=== PATIENT | female | born 1945 | race Caucasian/White ===

== ENCOUNTER → 2016-05-16 | Outpatient (CLI) | payer MEDICARE ==
[~2016-05-16] MED LIST: ACCUNEB 0.1.25 MG/1 NEB; ADVAIR 250/501 EA INH; ADVAIR 500/501 E1 INH; ALBUTEROL0.09 MG/A2 IH; ALBUTEROL0.09 MG/A2 INH; ALBUTEROL2.5 MG/0.5 INH; AMBIEN10 M1 PO; AMBIEN5 MG PO; ATIVAN0.5 MG PO; BENTYL10 MG PO; CARAFATE1 G1 PO; CARAFATE1 GM/10 ML PO; CARDIZEM CD240 MG PO; CEFUROXIME AXE250 MG PO; CELEBREX100 MG PO; CILOXAN 5 ML5 M1 OP; CILOXAN 5 ML5 M1 OT; CIPRO500 MG PO; CITRATE OF1.75 GM/30 PO; CLARITIN10 MG PO; COREG3.125 MG PO; DELTASONE10 MG PO; DELTASONE20 MG PO; ELAVIL25 MG PO; FEOSOL300 MG PO; FERGON240 MG PO; FERROUS SULFAT324 M1 PO; FIORICET 325 MG1 TAB PO; FLAGYL500 MG PO; FORTICAL200 IU/ACT; IBU800 M1 PO; KEFLEX500 MG PO; LEVAQUIN250 MG PO; LEVOTHYROXIN0.125 MG PO; LONITEN2.5 MG; LOPERAMIDE1 MG/5 ML; MIRALAX POWDER17 G1 PO; MOTRIN400 MG PO; MS CONTIN30 MG PO; MUCINEX600 MG PO; NEURONTIN100 MG PO; NEURONTIN300 MG PO; NEXIUM40 MG PO; NICODERM14 MG/24 H T; NORCO 325 MG-101 TAB PO; OXY IR5 MG PO; OXYCODONE5 M1 PO; OXYCONTIN10 MG PO; PERCOCET 325 MG1 TA2 PO; PERCOCET 325 MG1 TA7 PO; PREDNISONE10 MG PO; PREDNISONE5 MG PO; PREDNISONE50 MG PO; PROAIR HFA0.09 MG/AC INH; REMERON30 MG PO; REQUIP1 MG PO; REQUIP2 M2 PO; SEROQUEL XR150 MG PO; SEROQUEL XR200 MG PO; SEROQUEL XR400 MG PO; SEROQUEL200 MG PO; SEROQUEL300 MG PO; SEROQUEL400 MG PO; SOMA PO; SOMA350 MG PO; SPIRIVA -- 3018 MCG INH; SPIRIVA18 MCG PO; SYNTHROID,LEV150 MCG PO; SYNTHROID0.125 MG PO; Synthroid,Lev150 MCG PO; VALIUM10 MG PO; VENTOLIN H0.09 MG/AC INH; VESICARE5 MG PO; VIBRAMYCIN100 MG PO; VICODIN 5/500 505 MG PO; VICODIN ES 7501 TA1 PO; VICODIN ES 7501 TAB PO; VISTARIL25 M1 PO; VITAMIN B121000 MC2 SL; VITAMIN D5000 I3 PO; Ventolin 02.5 MG/3 M INH; XANAX XR0.5 MG PO; XANAX XR2 MG PO; XANAX0.25 MG PO; XANAX0.5 MG PO; XANAX2 MG PO; ZITHROMAX250 MG PO; ZOFRAN ODT4 MG SL; ZOLOFT100 MG PO; ZOLOFT50 MG PO
[2016-05-16 10:39] LABS: BILIRUBIN NEGATIVE (NEGATIVE); BLOOD 2+ (NEGATIVE); CLARITY SL CLOUDY (CLEAR); COLOR YELLOW (YELLOW); GLUCOSE NEGATIVE (NEGATIVE); KETONE NEGATIVE (NEGATIVE); LEUKO ESTERASE NEGATIVE (NEGATIVE); NITRITE NEGATIVE (NEGATIVE); PH 6.5 (5.0-9.0); PROTEIN 2+ (NEGATIVE); SPECIFIC GRAVITY 1.015 (1.005-1.030); UROBILINOGEN 0.2 E.U./dl (0.2-1.0)
[2016-05-16 11:17] LABS: BACTERIA 1+; RBC 16-20 rbc/hpf (0-2)
[2016-05-16 11:18] LABS: YEAST TRACE
== END | disposition home or self-care (01) ==
LOC: LAB 10:08
PROVIDERS: Urology
DX: N39.0 Urinary tract infection, site not specified (principal)

== ENCOUNTER 2016-05-19 16:39 | Inpatient (IN) | payer MEDICARE ==
[~2016-05-19] VITALS: Ht 154.9 cm; Wt 67.2 kg
--- NOTE | ~2016-05-19 | WRIGHTHP ---
[place], [place] PATIENT HISTORY AND PHYSICAL EXAM NAME: CAMILO AUGUSTE UNIT #: [id number] ROOM: 531 DOCTOR: CARON BUSBY MD BIRTHDATE: [birth year] DOS: 05/20/2016 HISTORY OF PRESENT ILLNESS: The patient is 70 years old, comes in with complaints of chest pain. Ambulance was called and was brought to the Emergency Room. She continues to complain of pain, but refuses to do any workup and also has not allowed the nursing staff to draw the enzymes. The patient does not have any fever, any chills, any cough, or sputum production. PAST MEDICAL HISTORY: Significant for, 1. Multiple hospitalizations for exacerbation of COPD. She uses oxygen sometimes. 2. Chronic pain syndrome. 3. Generalized anxiety disorder. 4. Hypothyroidism. 5. Negative cardiac evaluation in 08/2015. 6. History of lumbar laminectomy. 7. History of shoulder arthroplasty. MEDICATIONS: She is on are Percocet, vitamin D 5000, Nexium 40, levothyroxine 150. SOCIAL HISTORY: Heavy smoker, but the patient states that she is not smoking anymore, lives at home. PHYSICAL EXAMINATION: GENERAL: She is awake and alert and oriented, in no distress at all. VITAL SIGNS: Blood pressure is 134/63, pulse of 74, respirations 20, temperature 98.0. LUNGS: Clear. HEART: Regular. ABDOMEN: Soft, nontender. EXTREMITIES: Without any edema. Urine culture done on the shows no bacterial growth. LABORATORY DATA: White blood cell count is normal at 7.6. Comprehensive glucose 94, BUN 9, creatinine 0.65, sodium 135, potassium 3.4. Electrolytes were normal. Drug screen was positive for opiates. ASSESSMENT AND PLAN: 1. The patient who presents with precordial chest pain. The patient is an old smoker, also has risk factors, had a negative cardiac workup in 2016. I will ask Dr. Ruffin for an opinion, I think she is already scheduled for a stress test today. I have ordered enzymes to rule out myocardial infarction protocol, but unfortunately the patient refused to have them drawn, so, I wait until the stress test is performed and if it is negative, the patient should be able to go home. 2. Chronic pain syndrome already on Percocet, one dose of Toradol was given today. Patient to follow up with her primary care physician. 3. Chronic obstructive pulmonary disease without any evidence of exacerbation [place], [place] PATIENT HISTORY AND PHYSICAL EXAM NAME: CAMILO AUGUSTE UNIT #: [id number] ROOM: 531 DOCTOR: CARON BUSBY MD BIRTHDATE: [birth year] and the chest x-ray does not show any evidence of pneumonia. CARON BUSBY MD CM:HISPHYS:PATIENT HISTORY AND PHYSICAL EXAMINATION [id number] CARON BUSBY MD 06/21/16 1446 interface
[~2016-05-19 16:39] MED LIST changes: -REQUIP2 M2 PO; -ZOLOFT50 MG PO
[2016-05-19 16:45] VITALS: BP 113/74
[2016-05-19 17:04] VITALS: BP 108/65
[2016-05-19 17:07] LABS: BASO # 0.1 10*3/uL (0.0-0.1); BASO % 0.9 % (0.0-1.0); EOS # 0.1 10*3/uL (0.0-0.4); EOS % 1.8 % (1.0-4.0); HEMATOCRIT 38.2 % (37.0-47.0); LYMPH # 2.9 10*3/uL (1.3-4.4); LYMPH % 38.4 % (27.0-41.0); MEAN CELL VOLUME 84.9 fl (81.0-99.0); MEAN CORPUSCULAR HGB 26.7 pg (27.0-31.0); MEAN CORPUSCULAR HGB CONC 31.4 g/dl (33.0-37.0); MEAN PLATELET VOLUME 10.6 fl (9.6-12.3); MONO # 0.5 10*3/uL (0.1-1.0); MONO % 6.9 % (3.0-9.0); NEUT # 3.9 10*3/uL (2.3-7.9); NEUT % 51.7 % (47.0-73.0); PLATELET COUNT AUTOMATED 188 10*3/uL (130-400); RED CELL DISTRI WIDTH 15.8 % (0-14.5); WHITE BLOOD COUNT 7.6 10*3/uL (4.8-10.8)
[2016-05-19 17:26] LABS: ALKALINE PHOSPHATASE 87 U/L (45-117); BILIRUBIN, TOTAL 0.2 mg/dl (0.2-1.0); BUN 9 mg/dl (7-24); CARBON DIOXIDE 22 mmol/L (21-32); CHLORIDE 101 mmol/L (98-107); EST GLOM FILT AFRICAN AMERICAN > 60 ml/min; GLUCOSE 94 mg/dL (65-99); POTASSIUM 3.4 mmol/L (3.5-5.1); SGOT/AST 19 IU/L (3-35); SGPT/ALT 17 U/L (12-78); SODIUM 135 mmol/L (136-145); TOTAL PROTEIN 6.9 gm/dL (6.4-8.2)
[2016-05-19 17:27] LABS: TROPONIN I < 0.015 ng/ml (<0.5)
[2016-05-19 18:43] LABS: URINE AMPHETAMINES < 1000 (1000ng/ml); URINE BARBITURATES < 200 (200ng/ml); URINE COCAINE < 300 (300ng/ml)
[2016-05-19 18:47] LABS: BILIRUBIN NEGATIVE (NEGATIVE); BLOOD 2+ (NEGATIVE); CLARITY SL CLOUDY (CLEAR); COLOR YELLOW (YELLOW); GLUCOSE NEGATIVE (NEGATIVE); KETONE NEGATIVE (NEGATIVE); LEUKO ESTERASE 1+ (NEGATIVE); NITRITE NEGATIVE (NEGATIVE); PROTEIN 1+ (NEGATIVE); SPECIFIC GRAVITY <= 1.005 (1.005-1.030); UROBILINOGEN 0.2 E.U./dl (0.2-1.0)
[2016-05-19 18:56] LABS: URINE REFLEX COMMENT YES (NO); WBC 16-20 wbc/hpf (0-5)
[2016-05-19 19:06] VITALS: BP 111/69
[2016-05-20] VITALS: BP 134/63
[2016-05-20 08:00] VITALS: BP 136/58
[2016-07-12] MEDS ORDERED: REQUIP2 M2 PO (11:35)
[2016-07-12] MEDS ORDERED: ZOLOFT50 MG PO (11:36)
== END 2016-05-20 15:03 | disposition left against medical advice (07) | DRG 206 ==
LOC: ED 16:39 → EDHOLD 17:39 → 5E 17:39
PROVIDERS: Nurse Practitioner Family
DX: M94.0 Chondrocostal junction syndrome [Tietze] (principal); J44.9 Chronic obstructive pulmonary disease, unspecified; G89.4 Chronic pain syndrome; F41.1 Generalized anxiety disorder; Z96.619 Presence of unspecified artificial shoulder joint; Z98.890 Other specified postprocedural states; Z87.891 Personal history of nicotine dependence

== ENCOUNTER → 2016-07-12 | Outpatient (CLI) | payer MEDICARE ==
[~2016-07-12] MED LIST changes: +REQUIP2 M2 PO; +ZOLOFT50 MG PO
[2016-07-12 12:05] LABS: BILIRUBIN NEGATIVE (NEGATIVE); BLOOD 2+ (NEGATIVE); CLARITY CLOUDY (CLEAR); COLOR YELLOW (YELLOW); GLUCOSE NEGATIVE (NEGATIVE); KETONE NEGATIVE (NEGATIVE); LEUKO ESTERASE 2+ (NEGATIVE); NITRITE NEGATIVE (NEGATIVE); PH 5.5 (5.0-9.0); PROTEIN TRACE (NEGATIVE); UROBILINOGEN 0.2 E.U./dl (0.2-1.0)
[2016-07-12 12:28] LABS: EPITHELIAL CELLS 15-20; WBC 31-40 wbc/hpf (0-5)
[2016-07-12 12:31] LABS: BACTERIA 1+; YEAST 1+
[2016-07-12 12:35] LABS: BASO # 0.1 10*3/uL (0.0-0.1); BASO % 0.6 % (0.0-1.0); EOS # 0.2 10*3/uL (0.0-0.4); EOS % 2.6 % (1.0-4.0); HEMATOCRIT 41.2 % (37.0-47.0); HEMOGLOBIN 13.2 g/dl (12.0-16.0); LYMPH # 2.6 10*3/uL (1.3-4.4); LYMPH % 33.1 % (27.0-41.0); MEAN CELL VOLUME 82.6 fl (81.0-99.0); MEAN CORPUSCULAR HGB 26.5 pg (27.0-31.0); MEAN PLATELET VOLUME 10.6 fl (9.6-12.3); MONO # 0.7 10*3/uL (0.1-1.0); MONO % 9.2 % (3.0-9.0); NEUT # 4.2 10*3/uL (2.3-7.9); PLATELET COUNT AUTOMATED 202 10*3/uL (130-400); RED BLOOD COUNT 4.99 10*6/uL (4.10-5.10); RED CELL DISTRI WIDTH 19.5 % (0-14.5); WHITE BLOOD COUNT 7.8 10*3/uL (4.8-10.8)
[2016-07-12 12:59] LABS: BUN 15 mg/dl (7-24); CARBON DIOXIDE 26 mmol/L (21-32); CHLORIDE 106 mmol/L (98-107); EST GLOM FILT AFRICAN AMERICAN > 60 ml/min; GLUCOSE 124 mg/dL (65-99); POTASSIUM 3.8 mmol/L (3.5-5.1); SODIUM 140 mmol/L (136-145)
[2016-07-12 13:59] LABS: INTERNATIONAL NORM RATIO 0.9 (2.0-3.5); PROTHROMBIN TIME 9.8 SECONDS (9.0-12.4)
== END | disposition home or self-care (01) ==
LOC: LAB 10:55
PROVIDERS: Surgery
DX: D64.9 Anemia, unspecified (principal); R06.02 Shortness of breath; Z79.899 Other long term (current) drug therapy

== ENCOUNTER → 2016-07-18 | Day surgery (SDC) | payer MEDICARE ==
[~2016-07-18] VITALS: Ht 154.9 cm; Wt 65.8 kg
[2016-07-18 06:59] VITALS: BP 117/69
== END | disposition home or self-care (01) ==
LOC: SDC 07-12 11:00
DX: Z45.2 Encounter for adjustment and management of vascular access device (principal); Z53.21 Procedure and treatment not carried out due to patient leaving prior to being seen by health care provider; J44.9 Chronic obstructive pulmonary disease, unspecified; I10 Essential (primary) hypertension; F41.9 Anxiety disorder, unspecified; K21.9 Gastro-esophageal reflux disease without esophagitis; F32.9 Major depressive disorder, single episode, unspecified; Z90.710 Acquired absence of both cervix and uterus; Z90.49 Acquired absence of other specified parts of digestive tract; Z80.9 Family history of malignant neoplasm, unspecified; Z82.49 Family history of ischemic heart disease and other diseases of the circulatory system; Z79.82 Long term (current) use of aspirin; Z87.891 Personal history of nicotine dependence; Z87.01 Personal history of pneumonia (recurrent)

== ENCOUNTER → 2016-10-10 | Day surgery (SDC) | payer MEDICARE ==
[~2016-10-10] VITALS: Ht 154.9 cm; Wt 65.8 kg
[~2016-10-10] MED LIST changes: +HYDROCODONE BIT1 T11 PO; +MIRTAZAPINE15 M2 PO
--- NOTE | ~2016-10-10 | EKG ---
[place], [place] ELECTROCARDIOGRAM REPORT NAME: CAMILO AUGUSTE UNIT #: [id number] ROOM: DOCTOR: LYNETTE BOWEN MD BIRTHDATE: [birth year] DOS: 10/13/2016 TIME: 15:55:12 EKG: Sinus rhythm, left axis deviation, poor R-wave progression, nonspecific ST-T changes. LYNETTE BOWEN MD CM:EKGRPT:ELECTROCARDIOGRAM REPORT [id number] LYNETTE BOWEN MD
--- NOTE | ~2016-10-10 | PROC NOTE ---
[place], [place] PROCEDURE NOTE NAME: CAMILO AUGUSTE UNIT #: [id number] ROOM: DOCTOR: SANDRA BOONE MD,LILA BIRTHDATE: [birth year] DOS: 10/10/2016 PREOPERATIVE DIAGNOSIS: Persistent severe cough and wheezing, now resolving on current medical treatment as an outpatient. POSTOPERATIVE DIAGNOSES: 1. Tracheobronchitis. 2. Impaction of the mucus plugs, removed from endobronchial tree bilaterally. PROCEDURE DESCRIPTION: Informed consent was obtained from the patient. The patient was brought to the OR and placed in supine position. Conscious sedation was administered by the Anesthesia Department. After that, airway was introduced into the mouth. The bronchoscope was advanced into the airway into laryngeal area. Epiglottis and vocal cords were seen. The bronchoscope was advanced through the vocal cord into tracheal lumen. The tracheal lumen for the patient was noted. It showed moderate amount of thick mucus secretion, which was suctioned out with the help of normal saline wash and sent for culture. The esau was noted. Right upper, right middle, right lower, left upper, lingular lower lobe bronchi were all noted with impaction of moderate amount of mucus. Findings of tracheobronchitis noted. The secretion was cleared out with the help of normal saline wash and sent for culture. The procedure was well tolerated by the patient without any difficulty. Postoperative finding will be discussed with the patient once the patient recovers from the effects of acute sedation. LILA FLORES MD CM:PROCNOTE:PROCEDURE NOTE [id number] LILA BOONE MD
[2016-10-10 08:35] VITALS: BP 167/100
[2016-10-10 09:35] VITALS: BP 112/65
[2016-10-10 09:45] VITALS: BP 107/74
[2016-10-10 10:05] VITALS: BP 136/78
[2016-10-11 15:08] LABS: ACID FAST SPEC PROCESSING Concentration (.)
== END | disposition home or self-care (01) ==
LOC: SDC 00:28
PROVIDERS: Internal Medicine Critical Care Medicine
DX: J40 Bronchitis, not specified as acute or chronic (principal); T17.590A Other foreign object in bronchus causing asphyxiation, initial encounter; E03.9 Hypothyroidism, unspecified; F41.9 Anxiety disorder, unspecified; J44.9 Chronic obstructive pulmonary disease, unspecified; K21.9 Gastro-esophageal reflux disease without esophagitis; F32.9 Major depressive disorder, single episode, unspecified; I10 Essential (primary) hypertension; Z87.01 Personal history of pneumonia (recurrent); Z91.5 Personal history of self-harm; Z98.890 Other specified postprocedural states; Z82.49 Family history of ischemic heart disease and other diseases of the circulatory system; Z80.9 Family history of malignant neoplasm, unspecified; Z87.891 Personal history of nicotine dependence

== ENCOUNTER 2016-10-13 15:19 | Emergency (ER) | payer MEDICARE ==
[~2016-10-13] VITALS: Wt 74.8 kg
[~2016-10-13 15:19] MED LIST changes: -MIRTAZAPINE15 M2 PO
[2016-10-13 15:40] VITALS: BP 132/87
[2016-10-13] MEDS ORDERED: MIRTAZAPINE15 M2 PO (15:41)
[2016-10-13 16:01] LABS: BASO # 0.1 10*3/uL (0.0-0.1); BASO % 0.9 % (0.0-1.0); EOS # 0.2 10*3/uL (0.0-0.4); EOS % 2.5 % (1.0-4.0); HEMATOCRIT 37.1 % (37.0-47.0); HEMOGLOBIN 12.3 g/dl (12.0-16.0); LYMPH # 2.9 10*3/uL (1.3-4.4); MEAN CELL VOLUME 88.8 fl (81.0-99.0); MEAN CORPUSCULAR HGB 29.4 pg (27.0-31.0); MEAN CORPUSCULAR HGB CONC 33.2 g/dl (33.0-37.0); MEAN PLATELET VOLUME 10.3 fl (9.6-12.3); MONO # 0.5 10*3/uL (0.1-1.0); MONO % 7.1 % (3.0-9.0); NEUT # 3.8 10*3/uL (2.3-7.9); NEUT % 51.2 % (47.0-73.0); PLATELET COUNT AUTOMATED 167 10*3/uL (130-400); RED BLOOD COUNT 4.18 10*6/uL (4.10-5.10); RED CELL DISTRI WIDTH 15.5 % (0-14.5); WHITE BLOOD COUNT 7.5 10*3/uL (4.8-10.8)
[2016-10-13 16:12] LABS: BUN 12 mg/dl (7-24); CARBON DIOXIDE 22 mmol/L (21-32); CHLORIDE 98 mmol/L (98-107); EST GLOM FILT AFRICAN AMERICAN > 60 ml/min; GLUCOSE 83 mg/dL (65-99); SODIUM 133 mmol/L (136-145)
[2016-10-13] MEDS ORDERED: PREDNISONE10 MG PO (17:26)
== END 2016-10-13 17:37 | disposition home or self-care (01) ==
LOC: ED 15:19
PROVIDERS: Emergency Medicine
DX: J44.1 Chronic obstructive pulmonary disease with (acute) exacerbation (principal); F17.200 Nicotine dependence, unspecified, uncomplicated; F41.1 Generalized anxiety disorder; E03.9 Hypothyroidism, unspecified; Z88.0 Allergy status to penicillin; Z88.6 Allergy status to analgesic agent; J45.909 Unspecified asthma, uncomplicated

== ENCOUNTER → 2016-10-23 | Outpatient (CLI) | payer MEDICARE ==
[~2016-10-23] MED LIST changes: +MIRTAZAPINE15 M2 PO
== END | disposition home or self-care (01) ==
LOC: ORTHO 03:46
DX: M16.11 Unilateral primary osteoarthritis, right hip (principal); Z87.81 Personal history of (healed) traumatic fracture

== ENCOUNTER → 2016-12-19 | Outpatient (CLI) | payer MEDICARE | END | disposition home or self-care (01) | LOC: CT 08:15 | DX: M47.894 Other spondylosis, thoracic region (principal); M48.04 Spinal stenosis, thoracic region; M47.817 Spondylosis without myelopathy or radiculopathy, lumbosacral region; M51.26 Other intervertebral disc displacement, lumbar region; G89.29 Other chronic pain ==

== ENCOUNTER 2017-01-15 11:22 | Inpatient (IN) | payer MEDICARE ==
[~2017-01-15] VITALS: Ht 154.9 cm; Wt 63.5 kg
--- NOTE | ~2017-01-15 | CON ---
[place], [place] REPORT OF CONSULTATION NAME: CAMILO AUGUSTE UNIT #: [id number] ROOM: 503 DOCTOR: SANDEE ORTIZ DO BIRTHDATE: [birth year] DOS: 01/16/2017 CONSULTING PHYSICIAN: Dr. Roca for COPD. REASON FOR CONSULTATION: Shortness of breath. HISTORY OF PRESENT ILLNESS: This is a 71-year-old female who presents to [facility] for shortness of breath. The patient says her shortness of breath has been going on persistently for about 1 week and complains of having cough and sputum expectoration. The patient says she also is having some wheezing and dyspnea with walking. She says that she saw Dr. Flores in the office yesterday and Dr. Flores wanted her to come down to get a bronchoscopy. The patient also notes some mild chest congestion. The patient denies any fever, chills, nausea, vomiting or any other complaints at this time. PAST MEDICAL HISTORY: 1. History of COPD. 2. History of noncompliance. 3. History of chronic nicotine abuse. 4. Chronic back pain. 5. Chronic anxiety. 6. Hypothyroidism. 7. Iron deficiency anemia. 8. Chronic pain medication. 9. Peptic ulcer disease. PAST SURGICAL HISTORY: 1. Bladder suspension procedure in 1992. 2. Cholecystectomy in 1974. 3. Hysterectomy with removal of ovaries in 1965. 4. Two lumbar laminectomy in 1981 and 1985. 5. EGD. 6. MediPort placement. 7. Kidney stent placement. 8. Colonoscopy. SOCIAL HISTORY: The patient denies drug or alcohol use. The patient started smoking at the age of 17. FAMILY HISTORY: The patient's father at age of 76 due to metastatic cancer and coronary artery disease and mother at the age of 68 due to congestive heart failure. ALLERGIES: PENICILLIN, ASPIRIN, DARVOCET. REVIEW OF SYSTEMS: GENERAL: Denies fever, chills, nausea or vomiting. HEENT: Denies vision change, hearing loss, nasal discharge, throat pain, swelling, dysphagia. CARDIOVASCULAR: Denies chest pain, palpitations, lower extremity edema, and [place], [place] REPORT OF CONSULTATION NAME: CAMILO AUGUSTE UNIT #: [id number] ROOM: 503 DOCTOR: SANDEE ORTIZ DO BIRTHDATE: [birth year] diaphoresis. RESPIRATORY: Report shortness of breath, mild cough, mild wheezing and sputum. Denies dyspnea on exertion, paroxysmal nocturnal dyspnea. ABDOMINAL: Denies abdominal pain, nausea, vomiting, diarrhea or constipation. GENITOURINARY: Denies dysuria, hematuria. NEUROLOGIC: Denies lightheadedness, dizziness. PSYCHIATRIC: Denies anxiety, depression. SKIN: Denies any skin changes, rashes or lesions. PHYSICAL EXAMINATION: VITAL SIGNS: Temperature of 98.3, pulse 93, respiratory rate 16, blood pressure 146/85. GENERAL: Awake, alert, mild distress. HEAD: Normocephalic, atraumatic. EYES: PERRL. No lesion. Nonicteric. No drainage. ENT: No lesions, no masses. Nasal mucosa moist. NECK: Without lesion. Trachea midline. Thyroid not enlarged, nontender, supple. CARDIOVASCULAR: Heart S1, S2 audible. No murmur, tachycardia or lower extremity edema. RESPIRATORY: Diffuse wheezing bilaterally, mild respiratory distress. No rhonchi or rales. ABDOMEN: Soft, nontender, nondistended, positive bowel sounds. EXTREMITIES: No clubbing, no cyanosis, erythema. NEUROLOGIC: Without focal neurological deficit. PSYCHOLOGIC: Poor historian, anxious. SKIN: Warm and dry. No rashes. LABORATORY DATA: White cell count 8.5, hemoglobin 12.8, platelet 162. Sodium is 132, potassium 3.8, BUN 14, creatinine 0.72. Serology, acid fast stain and smear are pending. Microbiology, bronchoscopy cultures are pending. Blood cultures are pending to date. IMAGING: Chest x-ray done on 01/15/2017 did not show any pulmonary disease. ASSESSMENT AND PLAN: 1. Please refer to Dr. Flores's note for further assessment and plan. 2. The patient had bronchoscopy done today. Thank you for the consult. SANDEE ORTIZ DO [place], [place] REPORT OF CONSULTATION NAME: CAMILO AUGUSTE UNIT #: [id number] ROOM: 503 DOCTOR: SANDEE ORTIZ DO BIRTHDATE: [birth year] LILA FLORES MD CM:CONSTR:REPORT OF CONSULTATION 1100 01/16/17 1242 interface
--- NOTE | ~2017-01-15 | PR ---
[place], [place] PROGRESS NOTE NAME: CAMILO AUGUSTE UNIT #: [id number] ROOM: 503 DOCTOR: SHABBIR DOYLE MD BIRTHDATE: [birth year] DOS: 01/18/2017 SUBJECTIVE: The patient is breathing slightly better. OBJECTIVE: GENERAL APPEARANCE: Some generalized weakness and severe expiratory wheezing and decreased breath sounds. VITAL SIGNS: Blood pressure 140/86, heart rate 70 beats per minute, breathing 18 times per minute, temperature 98 degrees Fahrenheit. HEENT AND NECK: Exam within normal limits. CARDIOVASCULAR SYSTEM: Heart rate is regular in rate and rhythm. S1 and S2 normally audible. LUNGS: Clear to auscultation. ABDOMEN: Soft, nontender. No obvious organomegaly. Bowel sounds are present. EXTREMITIES: Without significant cyanosis or edema. IMPRESSION: 1. The patient with exacerbation of severe underlying chronic obstructive pulmonary disease with acute over chronic respiratory failure, improving slowly. Apparently, the patient has been cleared for discharge to home tomorrow by Dr. Schwartz. In the meantime, I will continue all her treatment. The patient is status post bronchoscopy by Dr. Schwartz. 2. Hypothyroidism, treated with supplements. 3. Chronic back, worse during her stay at the hospital being treated with p.r.n. IV Dilaudid. 4. History of nicotine smoke dependence. The patient is being encouraged to stop smoking cigarettes. SHABBIR DOYLE MD CM:PNTRANS 4 SHABBIR DOYLE MD 01/19/17 0115 interface
--- NOTE | ~2017-01-15 | PR ---
[place], [place] PROGRESS NOTE NAME: CAMILO AUGUSTE UNIT #: [id number] ROOM: 503 DOCTOR: LILA HERNANDEZ MD BIRTHDATE: [birth year] DOS: 01/17/2017 PULMONARY FOLLOW UP NOTE SUBJECTIVE: The patient was independently seen today with [id number] encounter. History was confirmed. Physical examination was performed. All the labs in the patient was reviewed. The note done by the medical instructor was approved. The assessment for the patient and the management changes were personally made for today's visit as well. The patient has been still noted with coughing. The patient underwent bronchoscopy yesterday with partial reduction still noted significant expiratory wheezing present at rest with symptoms of shortness of breath. Denies symptoms of acute chest pain. There was no hemoptysis. OBJECTIVE: VITAL SIGNS: For the patient low grade fever of 99.2 degree Fahrenheit, otherwise normal vital signs were noted; pulse oxygen saturation 3 liters nasal cannula was 97% saturation. HEENT: Showed no new change. NECK: Supple. CARDIOVASCULAR: S1, S2 audible. LUNGS: Noted generally reduced breath sounds. The patient refused expiratory wheezing. ABDOMEN: Soft, nontender. EXTREMITIES: The patient noted without any edema. LABORATORY DATA: The culture of the bronchial washing preliminary showing normal adithya. Gram stain from yesterday shows few epithelial cells, few white blood cells, and rare gram-positive cocci in pair with normal adithya. Blood culture from the showed no bacterial growth. IMPRESSION: The patient with persistent acute severe exacerbation of bronchial asthma and acute bronchitis, status post bronchoscopy with partial improvement. PLAN OF TREATMENT: Change Solu-Medrol the patient with high dose because of persistent severe wheezing and changing it to 40 mg every 8 hours. Continuation of bronchodilator previously ordered. Monitor culture results prior to consideration of any changes in the antibiotics. Usual care. All other supportive therapy, plan of management and other care. Additional changes made in the treatment the patient will be done based on the progression of the illness. Supportive therapy, plan of management and care. [place], [place] PROGRESS NOTE NAME: CAMILO AUGUSTE UNIT #: [id number] ROOM: 503 DOCTOR: LILA HERNANDEZ MD BIRTHDATE: [birth year] LILA FLORES MD CM:PNTRANS 47 [phone] LILA BOONE MD 01/17/171945 interface
--- NOTE | ~2017-01-15 | PR ---
[place], [place] PROGRESS NOTE NAME: [facility]E [facility] [id number] UNIT #: [id number] ROOM: 503 DOCTOR: SHABBIR DOYLE MD BIRTHDATE: [birth year] DOS: 01/17/2017 SUBJECTIVE: The patient still short of breath and wheezing, even after the bronchoscopy. She has no other complaints than shortness of breath. PHYSICAL EXAMINATION: VITAL SIGNS: Blood pressure 146/71, heart rate 65 beats per minute, breathing 18 times per minute, temperature 98.3 degrees Fahrenheit. GENERAL APPEARANCE: The patient is alert and oriented x 3, in no visible distress. HEENT AND NECK: Exam within normal limits. CARDIOVASCULAR SYSTEM: Heart rate is regular in rate and rhythm. S1 and S2 normally audible. LUNGS: Decreased breath sounds and expiratory wheezing all over. ABDOMEN: Soft, nontender. No obvious organomegaly. Bowel sounds are present. EXTREMITIES: Without significant cyanosis or edema. IMPRESSION: 1. Acute exacerbation of severe underlying chronic obstructive pulmonary disease with shortness of breath and wheezing. Plan to continue treatment with antibiotics, bronchodilators, and corticosteroids. 2. Poor compliance with treatment and followup as an outpatient. 3. History of nicotine smoke dependence. The patient encouraged to stop. 4. Chronic back pain, which is worse during her stay at the hospital, being managed with Dilaudid as needed. 5. Hypothyroidism, treated with thyroid supplements. SHABBIR DOYLE MD CM:PNTRANS [id number] SHABBIR DOYLE MD 01/17/17 2334 interface
--- NOTE | ~2017-01-15 | WRIGHTHP ---
[place], [place] PATIENT HISTORY AND PHYSICAL EXAM NAME: CAMILO AUGUSTE [facility] #: [id number] UNIT #: [id number] ROOM: [facility] DOCTOR: SHABBIR DOYLE MD BIRTHDATE: [birth year] DOS: 01/15/2017 HISTORY OF PRESENT ILLNESS: The patient is a 71-year-old female with a past medical history of: 1. Advanced chronic obstructive pulmonary disease. 2. Noncompliance with treatment. 3. Nicotine smoke dependence. 4. Chronic back pains. 5. Chronic generalized anxiety disorder. 6. Hypothyroidism. 7. Iron deficiency anemia. 8. History of peptic ulcer disease. 9. Bladder suspension surgery in 1992 10. Cholecystectomy in 1974. 11. Hysterectomy and oophorectomy in 1965. 12. Lumbar laminectomy in 1981 and 1985 13. History of EGD, MediPort placement, kidney stent placement and colonoscopy. The patient presented to the Emergency Department at [facility] with 1 week's complaint of increasing shortness of breath, cough without any sputum. No chest pains except for just with the cough. No dizziness or fainting episodes. No other GI or urinary symptoms. Worse for about 3 days. The patient was admitted by ____ and Dr. Schwartz took her for bronchoscopy this morning. The patient has significant complaints of wheezing and shortness of breath. No chest pain. No other GI or urinary symptoms. REVIEW OF SYSTEMS: LUNGS: Increasing shortness of breath and wheezing along with cough. GASTROINTESTINAL: No nausea, vomiting, diarrhea or constipation. CARDIOVASCULAR SYSTEM: No chest pains or palpitations. FAMILY HISTORY: Noncontributory. PHYSICAL EXAMINATION: GENERAL: Alert and oriented x 3, morbid obesity. HEENT AND NECK: Extraocular movements are intact. Sclerae are anicteric. Oral mucosa is moist and clean. No obvious facial weakness. Neck is supple without any lymphadenopathy. No thyromegaly. No JVD. No carotid arterial bruits. LUNGS: Decreased breath sounds all over and significant expiratory wheezing all over. Clear to auscultation. No wheezing. No rhonchi. CARDIOVASCULAR SYSTEM: Heart rate is regular in rate and rhythm. S1 and S2 normally audible. No significant murmur or any other abnormal cardiac sounds. ABDOMEN: Soft, nontender. No obvious organomegaly. Bowel sounds are present. No obvious herniation. EXTREMITIES: Without significant cyanosis or edema. Warm to touch. CENTRAL NERVOUS SYSTEM: Alert and oriented x 3. Cranial nerves II-XII are intact. Speech is normal. The patient is able to move all extremities. Normal muscle strength. Deep tendon reflexes are equal on both sides. Plantars were [place], [place] PATIENT HISTORY AND PHYSICAL EXAM NAME: CAMILO AUGUSTE UNIT #: [id number] ROOM: [facility] DOCTOR: SHABBIR DOYLE MD BIRTHDATE: [birth year] downgoing. LABORATORY DATA: Normal serum electrolytes, bilirubin, liver enzymes. Lactic acid level is normal. IMPRESSION AND PLAN: 1. The patient with acute exacerbation of chronic obstructive pulmonary disease and acute over chronic respiratory failure, to be treated with bronchodilators, corticosteroids, oxygen and antibiotics and the patient's breathing has not significantly improved. The patient was even taken for a bronchoscopy by Dr. Schwartz this morning. 2. Poor compliance with treatment. The patient has not seen me at the office at her scheduled appointments for a long time now. 3. The patient with nicotine smoke dependence. 4. Chronic back pains. The patient complaining of increased mid back pains with severe cough, for which I will give her p.r.n. Dilaudid. 5. Hypothyroidism, treated with thyroid supplements. SHABBIR DOYLE MD CM:HISPHYS:PATIENT HISTORY AND PHYSICAL EXAMINATION [id number] SHABBIR DOYLE MD 01/16/172034 interface
--- NOTE | ~2017-01-15 | PR ---
[place], [place] PROGRESS NOTE NAME: CAMILO AUGUSTE UNIT #: [id number] ROOM: 503 DOCTOR: SANDEE ORTIZ DO BIRTHDATE: [birth year] DOS: 01/17/2017 SUBJECTIVE: The patient was seen and examined this morning with Dr. Flores. The patient denies any concerns or complaints at this time. OBJECTIVE: VITAL SIGNS: Temperature 97.5, pulse 78, respiratory rate 22, blood pressure 148/92, pulse ox is 97 on 3 liters nasal cannula. HEENT: Shows no change. NECK: Supple. CARDIOVASCULAR: S1, S2 audible. LUNGS: Diminished at the bases. No rales, rhonchi or wheezing. ABDOMEN: Soft, nontender, nondistended. EXTREMITIES: Did not show any edema. ASSESSMENT AND PLAN: 1. Acute exacerbation of bronchial asthma. 2. Acute bronchitis. 3. History of nicotine abuse. PLAN OF TREATMENT: 1. Continue q. 8 hours. 2. Continue ceftriaxone. 3. Continue DuoNeb. 4. Continue current management. 5. Await final bronchial cultures. 6. Supportive care. SANDEE ORTIZ, DO LILA FLORES MD CM:PNTRANS [id number] SNADEE ORTIZ DO 01/17/17 1237 interface
--- NOTE | ~2017-01-15 | PR ---
[place], [place] PROGRESS NOTE NAME: CAMILO AUGUSTE UNIT #: [id number] ROOM: 503 DOCTOR: SANDRA BOONE MD,LILA BIRTHDATE: [birth year] DOS: 01/19/2017 SUBJECTIVE: She has been noted comfortable at this time with reduction of the respiratory symptoms of cough, wheezing and others. Denies symptoms of chest pain or abdominal pain. OBJECTIVE: VITAL SIGNS: Temperature noted normal, respirations 18, heart rate 64, blood pressure 162/76, pulse ox saturation was recorded as 98% on room air. HEENT: Showed no new change. NECK: Supple. CARDIOVASCULAR: S1, S2 audible. LUNGS: Without any wheeze or crackles at the present time. ABDOMEN: Soft, nontender. IMPRESSION: Progressive resolution of acute exacerbation of bronchial asthma with acute tracheobronchitis. PLAN: Current plan of management and plan of therapy. No changes in the plan for this patient at this time. From the Pulmonary standpoint, discharge the patient home whenever is necessary on tapering dose of prednisone and oral antibiotics. Tobacco abstinence was discussed with the patient; outpatient followup to be established post discharge in the next couple of weeks. LILA FLORES MD CM:PNTRANS [phone] LILA BOONE MD 01/20/17 0258 interface
--- NOTE | ~2017-01-15 | PR ---
[place], [place] PROGRESS NOTE NAME: CAMILO AUGUSTE UNIT #: [id number] ROOM: 503 DOCTOR: SANDRA BOONE MD,LILA BIRTHDATE: [birth year] DOS: 01/18/2017 SUBJECTIVE: The patient has been noted comfortable with reduction of wheezing and cough from the past 24 hours as the patient's steroid dose was increased. She denies any symptoms of chest pain. The sputum expectoration has been noted small. OBJECTIVE: VITAL SIGNS: Showed normal temperature, respirations 16, heart rate of 70, blood pressure 158/84. The pulse oxygen saturation on room air was 94% saturation. HEENT: Examination shows no new change. NECK: Supple. CARDIOVASCULAR: S1, S2 audible. LUNGS: The patient was noted with mild expiratory wheezing, no crackles. ABDOMEN: Soft, nontender. LABORATORY DATA: The culture of the bronchial washing shows normal adithya. IMPRESSION: Resolving acute exacerbation, uncomplicated, severe persistent bronchial asthma, history of past nicotine abuse. PLAN OF TREATMENT: Continue current dose of steroids. Potential discharge in the morning on oral medication depending on further improvement in the respiratory symptoms. LILA FLORES MD CM:PNTRANS [phone] LILA BOONE MD 01/19/17 0140 interface
--- NOTE | ~2017-01-15 | DS ---
[place], [place] DISCHARGE SUMMARY NAME: CAMILO AUGUSTE [facility] #: [id number] UNIT #: [id number] ROOM: 503 DOCTOR: SHABBIR DOYLE MD BIRTHDATE: [birth year] DOS: 01/19/2017 DISCHARGE DIAGNOSES: 1. Exacerbation of severe underlying chronic obstructive pulmonary disease, improved with treatment. The patient is status post bronchoscopy. 2. Hypothyroidism. 3. History of nicotine smoke dependence, noncompliance with treatment. 4. Chronic back pains, chronic generalized anxiety disorder. 5. Hypothyroidism. 6. Iron-deficiency anemia. 7. History of peptic ulcer disease. 8. Bladder surgery in 1992. 9. Cholecystectomy in 1974, hysterectomy and oophorectomy 1965, lumbar laminectomy in 1981 and with chronic lower back pains. 10. History of MediPort placement and kidney stent placement on colonoscopy. HOSPITAL COURSE: The patient presented to the Emergency Department at [facility] with 1 week complaint of increasing shortness of breath, cough without sputum and wheezing. The patient was found to be in acute or chronic respiratory failure. The patient was admitted and pulmonary consultation was obtained with Dr. Schwartz. The patient was treated with bronchodilators and corticosteroids, antibiotic and she was taken for a bronchoscopy by Dr. Schwartz. Sputum cultures grew normal adithya and the patient is being discharged to home. 1. Poor compliance with treatment, continued nicotine smoke dependence and very advanced emphysema with chronic respiratory failure. 2. Chronic low back pains and laminectomy, pains are treated with IV Dilaudid at the hospital because she was mentioning that pains in the hospital had increased. 3. Hypothyroidism, treated with thyroid supplements. 4. Continued nicotine smoke dependence. The patient was encouraged to stop smoking cigarettes. 5. Hypothyroidism, treated with thyroid supplements. 6. COPD which is advanced, treated with bronchodilators and corticosteroids. The patient is being discharged to home after cleared by Dr. Schwartz for discharge yesterday. LABORATORY DATA: Sputum Gram stains were negative. Normal serum electrolytes, bilirubin, liver enzymes. Lactic acid level was normal. DISCHARGE MANAGEMENT: Medrol Dosepak, Cipro 500 mg twice a day for a week, levothyroxine 100 mcg daily, Protonix 40 mg a day, ropinirole 1 mg b.i.d., Coreg 3.125 mg b.i.d., tramadol 50 mg every 6 hours p.r.n. for pain, Zoloft 50 mg b.i.d., DuoNeb every 4 hours, Ambien 10 mg at bedtime p.r.n. for sleep. [place], [place] DISCHARGE SUMMARY NAME: CAMILO AUGUSTE UNIT #: [id number] ROOM: [facility] DOCTOR: SHABBIR DOYLE MD BIRTHDATE: [birth year] SHABBIR DOYLE MD CM:DISCHARG [id number] SHABBIR DOYLE MD 01/19/172116 interface
--- NOTE | ~2017-01-15 | PROC NOTE ---
[place], [place] PROCEDURE NOTE NAME: CAMILO AUGUSTE UNIT #: [id number] ROOM: [facility] DOCTOR: SANDRA BOONE MD,LILA BIRTHDATE: [birth year] DOS: 01/16/2017 PROCEDURE: Bronchoscopy. PREOPERATIVE DIAGNOSES: Persistent severe coughing and wheezing and shortness of breath with suspected mucus impaction. POSTOPERATIVE DIAGNOSES: Tracheobronchitis with mucus impaction cleared from endobronchial tree bilaterally. PROCEDURE DESCRIPTION: Informed consent was obtained for the patient. The patient was brought to the OR and placed in supine position. Conscious sedation administered by the Anesthesia Department. After achieving appropriate sedation, airway introduced into the mouth. Bronchoscope advanced into the airway into laryngeal area. Epiglottis was seen. The bronchoscope for this patient advanced to vocal cord and tracheal lumen shows moderate amount of thick mucus secretions suctioned out of the patient to the esau level. The right upper, right middle, right lower, left upper, lingular lower lobe bronchi were all examined. Moderate mucus impaction noted in the endobronchial tree bilaterally with findings of tracheobronchitis. All secretions suctioned out clear with normal saline wash, sent for cultures. Procedure was tolerated by the patient without any difficulty. Postoperative findings will be discussed with the patient later once the patient recovers from the effects of acute sedation. Based on the current bronchoscopy assessment, no change in the treatment will be needed. LILA FLORES MD CM:PROCNOTE:PROCEDURE NOTE [id number] LILA BOONE MD
--- NOTE | ~2017-01-15 | CON ---
[place], [place] REPORT OF CONSULTATION NAME: CAMILO AUGUSTE UNIT #: [id number] ROOM: 503 DOCTOR: SANDRA BOONE MDLILA BIRTHDATE: [birth year] DOS: 01/16/2017 PULMONARY CONSULTATION CONSULTATION REQUESTED BY: Hospitalist service. REASON FOR CONSULTATION: Ongoing exacerbation of bronchial asthma/COPD. HISTORY OF PRESENT ILLNESS: This is a 71-year-old female who has been admitted to the hospital on the date of 01/15/2017. Consultation for this patient was requested by Dr. Jacquelyn Solomon. The patient was independently seen and examined the patient today with [id number] encounter. The history was confirmed. Physical examination was performed. The assessment and management were personally completed for this patient for today's visit any changes in treatment were made based on my personal recommendation. The note which was done by the medical research tech, was approved. The summary of this consultation; 71-year-old white female who has been seen in my office yesterday for the ongoing respiratory symptoms, which has been noted with increased chest congestion and coughing with wheezing and shortness of breath occurring with mild exertion activity. She was noted with acute exacerbation complicated with severe persistent bronchial asthma, sent to the Emergency Room for further medical management. The patient's symptoms started a couple of weeks ago noted gradual progressive nonresolving with the symptoms. She has been noted with noncompliant with followup in the office, she usually comes to the office when the symptoms were noted severe and would like to have a bronchoscopy done. She has been admitted to the hospital yesterday, had been started on intravenous steroids, bronchodilators, antibiotics and others medical management was started. Review of systems, past history, family history, social history, surgical history for this patient has already completed by the medical research tech. Please also refer to my history and physical examination done on 06/19/2015, the past history, surgical, family and social history were noted, all unchanged as reviewed with the patient again. MEDICATIONS: Current administered medications noted. Levothyroxine, Protonix, IV Solu-Medrol, Requip, Coreg, tramadol, sertraline, DuoNeb, IV Rocephin, and other p.r.n. medications administered. DRUG ALLERGY HISTORY: The patient reported as allergy: 1. PENICILLIN. 2. DARVOCET. 3. ASPIRIN. PHYSICAL EXAMINATION: GENERAL: This is a 71-year-old female who has been currently noted awake and alert with audible wheezing, height of 5 feet 1 inch, weight of 140 pounds, BMI 26. VITAL SIGNS: Normal temperature, respiratory rate of 16-17, heart rate 73-93, blood pressure 146/85-104/71. Pulse oxygen saturation for the patient on 2 [place], [place] REPORT OF CONSULTATION NAME: CAMILO AUGUSTE UNIT #: [id number] ROOM: [facility] DOCTOR: SANDRA BOONE MD,LILA BIRTHDATE: [birth year] liters nasal cannula 98% saturation recorded. HEENT: Examination shows head was atraumatic. Eyes nonicterus. NECK: Supple. CARDIOVASCULAR: S1, S2 audible. LUNGS: Diffuse expiratory wheezing in the lungs noted bilaterally with decreased breath sound bilaterally. ABDOMEN: Soft, nontender. Bowel sounds present. CENTRAL NERVOUS SYSTEM: The patient was noted without any gross focal neurologic deficit. Cranial nerves 2-12 intact. MUSCULOSKELETAL: No deformities. SKIN: No lesions or rashes. LABORATORY DATA: Review of the lab for this patient's CBC that was done yesterday was essentially noted as normal CBC. Lactic acid yesterday was noted as normal. PT/PTT yesterday noted as normal. CMP of the patient that was done just at the Emergency Room, noted as sodium 132, remaining CMP was normal. CK-MB and troponin of the patient were noted as normal. One view chest x-ray of the patient in the Emergency Room was personally reviewed, shows hyperinflation without any acute pulmonary infiltration. IMPRESSION: 1. Recurrent acute exacerbation of bronchial asthma noted progressive with suspected mucous impaction of major airways with acute bronchitis, could be viral in origin as well to be considered. 2. History of nicotine abuse. The patient multiple medical problems noted in the past history. PLAN OF TREATMENT: The patient has been made n.p.o. for the bronchoscopy planned to be done today to extract any mucous impaction of major airways. In the meantime, continue current antibiotics, bronchodilators, corticosteroids same dose. Any additional change of treatment will be ordered after bronchoscopy as necessary. Other supportive plan of therapy to be continued as previously. Usual care. LILA FLORES MD CM:CONSTR:REPORT OF CONSULTATION 1239 01/16/17 1635 interface
--- NOTE | ~2017-01-15 | EKG ---
[place], [place] ELECTROCARDIOGRAM REPORT NAME: CAMILO AUGUSTE UNIT #: [id number] ROOM: 503 DOCTOR: SANDRA BOONE MD,LILA BIRTHDATE: [birth year] DOS: 01/15/2017 TIME: 1151 hours The electrocardiogram shows normal sinus rhythm with noted heart rate of 80 beats per minute without any other evidence of cardiac arrhythmia or ischemia. LILA FLORES MD CM:EKGRPT:ELECTROCARDIOGRAM REPORT 1251 1301 LILA BOONE MD
--- NOTE | ~2017-01-15 | PR ---
[place], [place] PROGRESS NOTE NAME: CAMILO AUGUSTE UNIT #: [id number] ROOM: 503 DOCTOR: SANDEE ORTIZ DO BIRTHDATE: [birth year] DOS: 01/16/2017 NO DICTATION. SANDEE ORTIZ DO LILA FLORES MD CM:ÁLVARO [id number] SANDEE ORTIZ DO 01/17/17 0825 interface
[2017-01-15 11:43] VITALS: BP 138/94
[2017-01-15 12:06] LABS: BASO # 0.1 10*3/uL (0.0-0.1); BASO % 0.8 % (0.0-1.0); EOS # 0.2 10*3/uL (0.0-0.4); EOS % 2.2 % (1.0-4.0); HEMATOCRIT 38.4 % (37.0-47.0); HEMOGLOBIN 12.8 g/dl (12.0-16.0); LYMPH # 3.3 10*3/uL (1.3-4.4); LYMPH % 39.1 % (27.0-41.0); MEAN CELL VOLUME 89.5 fl (81.0-99.0); MEAN CORPUSCULAR HGB 29.8 pg (27.0-31.0); MEAN CORPUSCULAR HGB CONC 33.3 g/dl (33.0-37.0); MEAN PLATELET VOLUME 9.6 fl (9.6-12.3); MONO # 0.8 10*3/uL (0.1-1.0); MONO % 9.1 % (3.0-9.0); NEUT # 4.1 10*3/uL (2.3-7.9); NEUT % 48.4 % (47.0-73.0); PLATELET COUNT AUTOMATED 162 10*3/uL (130-400); RED BLOOD COUNT 4.29 10*6/uL (4.10-5.10); RED CELL DISTRI WIDTH 15.2 % (0-14.5); WHITE BLOOD COUNT 8.5 10*3/uL (4.8-10.8)
[2017-01-15 12:14] LABS: ACT PARTIAL THROMBO TIME 24.4 SECONDS (20.8-31.5)
--- NOTE | 2017-01-15 12:18 | NUR ---
THE PT IS ALLERGIC TO [facility]
[2017-01-15 12:21] LABS: ALBUMIN 3.3 gm/dl (3.1-4.5); ALKALINE PHOSPHATASE 92 U/L (45-117); BUN 14 mg/dl (7-24); CHLORIDE 98 mmol/L (98-107); CKMB 1.2 ng/ml (0.5-3.6); CPK 49 U/L (26-192); CREATININE 0.72 mg/dL (0.55-1.02); LIPASE 141 U/L (73-393); MAGNESIUM 1.8 mg/dL (1.5-2.1); POTASSIUM 3.8 mmol/L (3.5-5.1); SGOT/AST 24 IU/L (3-35); SGPT/ALT 16 U/L (12-78); SODIUM 132 mmol/L (136-145); TOTAL PROTEIN 7.3 gm/dL (6.4-8.2)
[2017-01-15 12:22] LABS: TROPONIN I < 0.015 ng/ml (<0.045)
[2017-01-15 14:32] VITALS: BP 124/100
[2017-01-15 15:00] VITALS: BP 122/88
[2017-01-15 15:20] VITALS: BP 153/81
--- NOTE | 2017-01-15 15:20 | NUR ---
A 71, admitted to , under the services of CARON Rankin MD with a diagnosis of COPD. Chief complaint is SOB, WHEEZE. Patient arrived via stretcher from ER. Monitor applied. Initial assessment completed. Vital signs taken and recorded. CARON RANKIN MD notified of admission to the unit. Orders received. See assessment for past medical history, medications and allergies. Patient and/or family oriented to unit. [facility] visitation policy reviewed. Clothing/patient valuable form completed. JENNIFER PATEL
[2017-01-15] MEDS ORDERED: ZOLOFT50 MG PO (16:04)
[2017-01-15] MEDS ORDERED: AMBIEN10 M1 PO (16:05)
--- NOTE | 2017-01-15 16:07 | NUR ---
MED LIST REVIEWED WITH PT AND [facility]
--- NOTE | 2017-01-15 19:21 | NUR ---
DR FLORES STATES HE KNOWS ABOUT CONSULT . NO FURTHER ORDERS
[2017-01-15 20:00] VITALS: BP 136/76
--- NOTE | 2017-01-15 20:48 | NUR ---
PT. C/O PAIN IN CHEST FROM COUGHING. PT. STATED "I DON'T WANTANY PAIN PILL THAT DOESN'T WORK I WANT SOMETHING IV". CALLED DR. BUSBY AND ASKED FOR MEDICATION FOR PATIENT AND ORDER RECEIVED FOR PO PAIN MEDICATION ONLY.
--- NOTE | 2017-01-15 21:00 | NUR ---
PT. AWARE OF ORDERS FROM DR. BUSBY AND PATIENT UNHAPPY ABOUT ORDERS AND SAID "MY CAT WON'T EVEN TAKE THAT. IT DOESN'T WORK" AND PT. REFUSED ULTRAM.
--- NOTE | 2017-01-15 22:30 | NUR ---
NIYAH GIVEN PER ORDER FOR INSOMNIA PER PT. REQUEST.
[2017-01-16] VITALS (8 sets, daily range): BP systolic 96–158; BP diastolic 71–92
--- NOTE | 2017-01-16 00:30 | NUR ---
NIYAH EFFECTIVE PT. SLEEPING.
--- NOTE | 2017-01-16 06:00 | NUR ---
ULTRAM GIVEN PER ORDER FOR PAIN IN CHEST FROM COUGHING PER PT. RATED "6".
--- NOTE | 2017-01-16 07:00 | NUR ---
ULTRAM HELPING SLIGHTLY PER PT.
--- NOTE | 2017-01-16 07:30 | NUR ---
SPOKE WITH PATIENT SURGERY CALLED AND DR FLORES WANTS TO DO A BRONCHOSCOPE TODAY. PT. HAD MORNING MEDICATIONS WITH SIPS OF WATER BUT NOTHING ELSE. PT. AWARE OF BEING NPO.
--- NOTE | 2017-01-16 08:00 | NUR ---
PT TO SURGERY VIA BED FOR BRONCH
--- NOTE | 2017-01-16 11:29 | NUR ---
Vegetable Packer in to talk to patient. Patient states lives at home with alone. There are no steps in the home. Physician: pedrito glass [facility]acy: [facility] Home health services: none Patient's level of ADLs: INDEPENDENT Patient has working utilities: all working DME: home oxygen from [employer] and nebulizer Follow-up physician's appointment after d/c: patient will make her own appointment when discharged Does patient want to access PORTAL?: no Discharge plan discussed with patient, patient lives in an apartment alone, she states she gets around fine, patient will return home when able and denies any home needs. ANN-MARIE CESPEDES
--- NOTE | 2017-01-16 13:20 | NUR ---
PT REQUESTED AND GIVEN ULTRAM FOR C/O GEN PAIN. PT RATES PAIN 6/10. WILL MONITOR
--- NOTE | 2017-01-16 14:00 | NUR ---
PT STATES THAT ULTRAM HELPED A LITTLE. WILL MONITOR
--- NOTE | 2017-01-16 16:24 | NUR ---
DR DOYLE HERE TO SEE PT
--- NOTE | 2017-01-16 17:34 | NUR ---
PT REQUESTED AND GIVEN DILAUDID FOR C/O BACK PAIN. PT RATES PAIN 6/10. WILL MONITOR
--- NOTE | 2017-01-16 21:04 | NUR ---
ULTRAM GIVEN TO PATIENT PER REQUEST AND PT ORDER, PAIN IN BACK, 12/05.
--- NOTE | 2017-01-16 22:00 | NUR ---
PAIN IN BACK HAS SUBSIDED PER PATIENT, NOW 08/05
[2017-01-17] VITALS: BP 135/71
--- NOTE | 2017-01-17 | NUR ---
24 HR chart check completed.
--- NOTE | 2017-01-17 01:29 | NUR ---
PATIENT REQUESTED PAIN MEDICATION PER ORDER FOR BACK PAIN 12/05, GIVEN PER ORDER. PATIENT REQUESTED TO BE TAKEN OFF BIPAP, RESP. CONTACTED.
--- NOTE | 2017-01-17 02:15 | NUR ---
PER PATIENT PAIN MEDICATION EFFECTIVE PAIN 5
[2017-01-17 08:00] VITALS: BP 148/92
[2017-01-17 12:00] VITALS: BP 111/54
[2017-01-17 16:00] VITALS: BP 146/71
[2017-01-17 16:09] LABS: ACID FAST SMEAR Negative (.); ACID FAST SPEC PROCESSING Concentration (.)
[2017-01-17 20:00] VITALS: BP 143/81
--- NOTE | 2017-01-17 20:00 | NUR ---
ASSUMED CARE OF PATIENT. ASSESSMENT COMPLETE. RESTING IN BED. NO VOICED COMPLAINTS. CALL LIGHT IN REACH. WILL CONTINUE TO MONITOR.
--- NOTE | 2017-01-17 20:57 | NUR ---
MEDICATED WITH EARLE LINDER PER PT REQUEST FOR HELP TO SLEEP
--- NOTE | 2017-01-17 21:01 | NUR ---
MEDICATED WITH PRN ULTRAM FOR C/O CHEST AND BACK PAIN D/T COUGHING. RATES 11/04. WILL MONITOR FOR EFFECTIVENESS
[2017-01-18] VITALS: BP 114/59
[2017-01-18 04:05] VITALS: BP 120/58
[2017-01-18 08:00] VITALS: BP 158/84
--- NOTE | 2017-01-18 08:30 | NUR ---
MEDICATED WITH ULTRAM FOR GENERALIZED PAIN SHE RATES A 7.
--- NOTE | 2017-01-18 10:43 | NUR ---
MEDICATED WITH DILAUDED FOR GENERALIZED PAIN SHE RATES A 7 ON THE PAIN SCALE.
[2017-01-18 12:00] VITALS: BP 146/71
--- NOTE | 2017-01-18 14:01 | NUR ---
PATIENT RESTING WITH NO DISTRESS.
--- NOTE | 2017-01-18 14:24 | NUR ---
MEDICATED WITH ULRAM FOR GENERALIZED PAIN SHE RATES A 6.
[2017-01-18 16:00] VITALS: BP 152/85
--- NOTE | 2017-01-18 17:00 | NUR ---
PATIENT RESTING WITH NO COMPLAINTS.
[2017-01-18 20:00] VITALS: BP 140/86
--- NOTE | 2017-01-18 20:08 | NUR ---
PATIENT REQUESTED AND RECEIVED PRN 0.25 DILAUDID ORDERED FOR C/O BACK PAIN RATED AN 8
--- NOTE | 2017-01-18 21:00 | NUR ---
PER PATIENT EARLIER DILAUDID WAS EFFECTIVE IN DECREASING PAIN. CURRENTLY LYING IN BED. NO VOICED COMPLAINTS. RESPIRATIONS EASY/REGULAR. CALL LIGHT IS IN REACH.
[2017-01-19] VITALS: BP 127/63
--- NOTE | 2017-01-19 00:10 | NUR ---
PATIENT MEDICATED WITH PRN ULTRAM ORDERED FOR C/O BACK PAIN AT AN 8
--- NOTE | 2017-01-19 03:57 | NUR ---
PATIENT MEDICATED WITH PRN DILAUDED ORDERED FOR C/O BACK PAIN SHE RATES A 7.
--- NOTE | 2017-01-19 05:00 | NUR ---
EARLIER DILAUID IS EFFECTIVE PER PATIENT. STATES THAT IT NORMALLY WORKS FOR A LITTLE WHILE AND WEARS OFF FAST.
--- NOTE | 2017-01-19 06:21 | NUR ---
PATIENT SLEPT THROUGHOUT SHIFT WITH SOME VOICED C/O OF BACK PAIN WHICH SHE WAS MEDICATED FOR. NO ACUTE EVENTS OVER NIGHT. PATIENT IS PLEASANT AND COOPERATIVE WITH CARE. RESPIRATIONS EASY/REGULAR. NO SXS OF DISTRESS. CALL LIGHT IS IN REACH.
[2017-01-19 08:00] VITALS: BP 162/76
--- NOTE | 2017-01-19 08:14 | NUR ---
PATIENT RESTING QUIETLY.
--- NOTE | 2017-01-19 10:01 | NUR ---
MEDICATED WITH ULTRAM FOR GENERALIZED DISCOMFORT SHE RATES A 7 ON THE PAIN SCALE.
--- NOTE | 2017-01-19 11:00 | NUR ---
NO FURTHER COMPLAINTS OF PAIN.
[2017-01-19 12:00] VITALS: BP 106/76
--- NOTE | 2017-01-19 16:00 | NUR ---
MEDIPORT FLUSHED AND UNACCESSED FOR DISCHARGE. Discharge instructions reviewed with patient/family. Patient receptive and verbalizes understanding. Follow-up care arranged. Written instructions given to patient/family. ROGELIO SORTO
--- NOTE | 2017-01-19 16:00 | NUR ---
DR. DOYLE IN TO SEE PATIENT.
[2017-01-19] MEDS ORDERED: CIPRO500 MG PO (16:01)
[2017-01-19] MEDS ORDERED: MEDROL DOSEPAK4 MG PO (16:01)
== END 2017-01-19 16:00 | disposition home or self-care (01) | DRG 189 ==
LOC: ED 11:22 → 5E 14:11 → EDHOLD 14:11 → 5E 14:11
PROVIDERS: Emergency Medicine; Internal Medicine Critical Care Medicine; ADMIT Internal Medicine
DX: J96.20 Acute and chronic respiratory failure, unspecified whether with hypoxia or hypercapnia (principal); T17.590A Other foreign object in bronchus causing asphyxiation, initial encounter; J44.0 Chronic obstructive pulmonary disease with (acute) lower respiratory infection; J44.1 Chronic obstructive pulmonary disease with (acute) exacerbation; J45.51 Severe persistent asthma with (acute) exacerbation; F17.200 Nicotine dependence, unspecified, uncomplicated; D50.9 Iron deficiency anemia, unspecified; J20.9 Acute bronchitis, unspecified; X58.XXXA Exposure to other specified factors, initial encounter; E03.9 Hypothyroidism, unspecified; F41.1 Generalized anxiety disorder; G89.29 Other chronic pain; M54.9 Dorsalgia, unspecified; Z87.11 Personal history of peptic ulcer disease; Z90.49 Acquired absence of other specified parts of digestive tract; Z91.19 Patient's noncompliance with other medical treatment and regimen; Z90.710 Acquired absence of both cervix and uterus; Z90.721 Acquired absence of ovaries, unilateral; Z95.9 Presence of cardiac and vascular implant and graft, unspecified; Z88.0 Allergy status to penicillin; Z88.6 Allergy status to analgesic agent; Z88.8 Allergy status to other drugs, medicaments and biological substances; Y93.89 Activity, other specified; Y92.89 Other specified places as the place of occurrence of the external cause; Y99.8 Other external cause status

== ENCOUNTER → 2017-05-09 | Outpatient (CLI) | payer OTHER ==
[~2017-05-09] MED LIST changes: +MEDROL DOSEPAK4 MG PO
[2017-05-09 10:31] LABS: HEMOGLOBIN 11.8 g/dl (12.0-16.0); MEAN CELL VOLUME 87.6 fl (81.0-99.0); MEAN CORPUSCULAR HGB 28.7 pg (27.0-31.0); MEAN CORPUSCULAR HGB CONC 32.8 g/dl (33.0-37.0); MEAN PLATELET VOLUME 10.9 fl (9.6-12.3); RED BLOOD COUNT 4.11 10*6/uL (4.10-5.10); RED CELL DISTRI WIDTH 16.8 % (0-14.5); WHITE BLOOD COUNT 12.2 10*3/uL (4.8-10.8)
[2017-05-09 10:46] LABS: CHLORIDE 97 mmol/L (98-107); POTASSIUM 4.5 mmol/L (3.5-5.1); SODIUM 132 mmol/L (136-145)
[2017-05-09 11:16] LABS: ALBUMIN 3.3 gm/dl (3.1-4.5); ALKALINE PHOSPHATASE 97 U/L (45-117); BUN 15 mg/dl (7-24); CREATININE 0.81 mg/dL (0.55-1.02); FREE T4 1.02 ng/dl (0.76-1.46); HDL CHOLESTEROL 79 mg/dl (40-60); SGOT/AST 16 IU/L (3-35); SGPT/ALT 12 U/L (12-78); TRIGLYCERIDES 120 mg/dl (<150); VLDL CHOLESTEROL 24 mg/dL (6-40)
[2017-05-09 11:55] LABS: CHOLESTEROL 248 mg/dL (<200); LDL CHOLESTEROL 145 mg/dL (9-159)
[2017-05-09 12:07] LABS: VITAMIN D, 25-HYDROXY 13.6 ng/mL (30-100)
== END | disposition home or self-care (01) ==
LOC: LAB 09:47
PROVIDERS: Family Medicine
DX: I10 Essential (primary) hypertension (principal); K21.9 Gastro-esophageal reflux disease without esophagitis; E03.9 Hypothyroidism, unspecified; E55.9 Vitamin D deficiency, unspecified

== ENCOUNTER → 2017-07-14 | Outpatient (CLI) | payer OTHER ==
[2017-07-14 08:37] LABS: HEMATOCRIT 37.9 % (37.0-47.0); HEMOGLOBIN 11.8 g/dl (12.0-16.0); MEAN CELL VOLUME 94.3 fl (81.0-99.0); MEAN CORPUSCULAR HGB 29.4 pg (27.0-31.0); MEAN CORPUSCULAR HGB CONC 31.1 g/dl (33.0-37.0); MEAN PLATELET VOLUME 10.3 fl (9.6-12.3); RED BLOOD COUNT 4.02 10*6/uL (4.10-5.10); RED CELL DISTRI WIDTH 17.3 % (0-14.5)
[2017-07-14 09:08] LABS: ALKALINE PHOSPHATASE 107 U/L (45-117); BUN 20 mg/dl (7-24); CHLORIDE 108 mmol/L (98-107); CHOLESTEROL 218 mg/dL (<200); CREATININE 0.72 mg/dL (0.55-1.02); FREE T4 0.94 ng/dl (0.76-1.46); HDL CHOLESTEROL 77 mg/dl (40-60); LDL CHOLESTEROL 113 mg/dL (9-159); LIPASE 147 U/L (73-393); POTASSIUM 4.4 mmol/L (3.5-5.1); SGOT/AST 16 IU/L (3-35); SGPT/ALT 13 U/L (12-78); SODIUM 141 mmol/L (136-145); TOTAL PROTEIN 6.8 gm/dL (6.4-8.2); TRIGLYCERIDES 138 mg/dl (<150); VLDL CHOLESTEROL 28 mg/dL (6-40)
== END | disposition home or self-care (01) ==
LOC: LAB 07:42 → CT 08:00
PROVIDERS: Family Medicine
DX: Z13.220 Encounter for screening for lipoid disorders (principal); M48.54XA Collapsed vertebra, not elsewhere classified, thoracic region, initial encounter for fracture; I10 Essential (primary) hypertension; D72.829 Elevated white blood cell count, unspecified; R10.9 Unspecified abdominal pain; E03.9 Hypothyroidism, unspecified; M81.0 Age-related osteoporosis without current pathological fracture; K21.9 Gastro-esophageal reflux disease without esophagitis; Z98.890 Other specified postprocedural states

== ENCOUNTER → 2017-07-29 | Outpatient (CLI) | payer OTHER | END | disposition home or self-care (01) | LOC: US 07:27 | DX: N28.89 Other specified disorders of kidney and ureter (principal) ==

== ENCOUNTER → 2017-08-07 | Outpatient (CLI) | payer OTHER | END | disposition home or self-care (01) | LOC: RAD 07-31 13:00 | DX: Z13.820 Encounter for screening for osteoporosis (principal); E03.9 Hypothyroidism, unspecified; Z78.0 Asymptomatic menopausal state ==

== ENCOUNTER → 2017-09-25 | Outpatient (CLI) | payer OTHER ==
[~2017-09-25] MED LIST changes: +ALBUTEROL0.63 MG/3 INH
== END | disposition home or self-care (01) ==
LOC: MAMMO 08-27 07:20 → US 08-27 08:30 → MAMMO 09-10 01:11
DX: Z12.31 Encounter for screening mammogram for malignant neoplasm of breast (principal); R10.2 Pelvic and perineal pain; Z90.710 Acquired absence of both cervix and uterus; Z90.722 Acquired absence of ovaries, bilateral

== ENCOUNTER → 2017-10-15 | Day surgery (SDC) | payer OTHER ==
[~2017-10-15] VITALS: Ht 154.9 cm; Wt 63.5 kg
--- NOTE | ~2017-10-15 | PROC NOTE ---
[place], [place] PROCEDURE NOTE NAME: CAMILO AUGUSTE UNIT #: [id number] ROOM: DOCTOR: SANDRA BOONE MD,LILA BIRTHDATE: [birth year] DOS: 10/15/2017 PROCEDURE: Fibrobronchoscopy. PREOPERATIVE DIAGNOSES: Severe nonresolving cough and wheezing as an outpatient. POSTOPERATIVE DIAGNOSES: Removal of plugs of the mucus from endobronchial tree bilaterally. PROCEDURE DESCRIPTION: Informed consent obtained for the patient. The patient was brought to the OR and placed in supine position. Conscious sedation for the patient administered by the Anesthesia Department. After achieving proper sedation, airway introduced into the mouth. Bronchoscope advanced to the airway into laryngeal area. Epiglottis and vocal cords were seen. The bronchoscope advanced to the vocal cords and to tracheal lumen. Tracheal lumen noted with moderate amount of thick mucus secretion, which was suctioned out at the esau level. Right upper, right middle, right lower, left upper, lingular lobe bronchi were all examined. Fiqfq-ah-lmubyzvx amount of mucus impaction noted in the endobronchial tree bilaterally, which was suctioned off and cleared. Endobronchial secretion from all of the endobronchial subsegments were sent to the lab for culture. Procedure was well tolerated. Postoperative finding will be discussed once the patient recover from the effects of acute sedation. She has been ordered ____ to be used for current ongoing wheezing, exacerbation of chronic obstructive pulmonary disease and bronchial asthma. LILA FLORES MD CM:PROCNOTE:PROCEDURE NOTE 1114 1343 LILA BOONE MD
[2017-10-15 08:25] VITALS: BP 158/90
[2017-10-15 09:10] VITALS: BP 145/79
[2017-10-15 09:25] VITALS: BP 149/85
[2017-10-15 09:40] VITALS: BP 143/80
[2017-10-16 16:09] LABS: ACID FAST SPEC PROCESSING Concentration (.)
== END | disposition home or self-care (01) ==
LOC: SDC 03:27
PROVIDERS: Internal Medicine Critical Care Medicine
DX: J40 Bronchitis, not specified as acute or chronic (principal); J44.9 Chronic obstructive pulmonary disease, unspecified; I10 Essential (primary) hypertension; I25.2 Old myocardial infarction; E03.9 Hypothyroidism, unspecified; K21.9 Gastro-esophageal reflux disease without esophagitis; F41.9 Anxiety disorder, unspecified; G89.29 Other chronic pain; Z87.19 Personal history of other diseases of the digestive system; Z98.890 Other specified postprocedural states; Z88.0 Allergy status to penicillin; Z88.8 Allergy status to other drugs, medicaments and biological substances; Z79.899 Other long term (current) drug therapy; Z87.01 Personal history of pneumonia (recurrent); Z87.891 Personal history of nicotine dependence; Z82.49 Family history of ischemic heart disease and other diseases of the circulatory system; Z80.9 Family history of malignant neoplasm, unspecified

== ENCOUNTER → 2017-11-14 | Outpatient (CLI) | payer OTHER ==
[2017-11-14 09:59] LABS: HEMATOCRIT 38.8 % (37.0-47.0); HEMOGLOBIN 12.1 g/dl (12.0-16.0); MEAN CORPUSCULAR HGB CONC 31.2 g/dl (33.0-37.0); MEAN PLATELET VOLUME 11.1 fl (9.6-12.3); RED BLOOD COUNT 4.17 10*6/uL (4.10-5.10); RED CELL DISTRI WIDTH 15.9 % (0-14.5); WHITE BLOOD COUNT 5.7 10*3/uL (4.8-10.8)
[2017-11-14 10:05] LABS: ALBUMIN 3.1 gm/dl (3.1-4.5); ALKALINE PHOSPHATASE 103 U/L (45-117); BUN 10 mg/dl (7-24); CHLORIDE 101 mmol/L (98-107); CHOLESTEROL 202 mg/dL (<200); CREATININE 0.71 mg/dL (0.55-1.02); FREE T4 1.02 ng/dl (0.76-1.46); HDL CHOLESTEROL 68 mg/dl (40-60); LDL CHOLESTEROL 106 mg/dL (9-159); POTASSIUM 4.2 mmol/L (3.5-5.1); SGOT/AST 12 IU/L (3-35); SGPT/ALT 12 U/L (12-78); SODIUM 136 mmol/L (136-145); TRIGLYCERIDES 138 mg/dl (<150); VLDL CHOLESTEROL 28 mg/dL (6-40)
== END | disposition home or self-care (01) ==
LOC: LAB 08:48
PROVIDERS: Family Medicine
DX: I10 Essential (primary) hypertension (principal); E78.00 Pure hypercholesterolemia, unspecified; E03.9 Hypothyroidism, unspecified; J44.9 Chronic obstructive pulmonary disease, unspecified; M81.0 Age-related osteoporosis without current pathological fracture

== ENCOUNTER → 2018-01-06 | Outpatient (CLI) | payer OTHER ==
--- NOTE | ~2018-01-06 | EKG ---
[place], [place] ELECTROCARDIOGRAM REPORT NAME: CAMILO AUGUSTE UNIT #: [id number] ROOM: DOCTOR: EPIPHANY DRAFT REPORT BIRTHDATE: [birth year] [facility] Test Date: 2018-01-06 Test Time: 10:34:40 Pat Name: CAMILO AUGUSTE Department: Room: Gender: F Second Officer: Noemi Gordon : 1945 Requested By: MEENAKSHI ANDERSON Order Number: [id number] Reading MD: Kenn Arias MD Measurements Intervals [place] Rate: 70 P: 64 ME: 209 QRS: 19 QRSD: 84 T: 59 QT: 378 QTc: 408 Interpretive Statements Sinus rhythm Baseline wander in lead(s) V6 Electronically Signed On 01-09-2018 4:13:14 PDT by Kenn Arias MD CM:EKGRPT:ELECTROCARDIOGRAM REPORT 1034 0413 MEENAKSHI ANDERSON MD EPIPHANY DRAFT REPORT MEENAKSHI ANDERSON MD
[2018-01-06 09:59] LABS: BILIRUBIN NEGATIVE (NEGATIVE); BLOOD 1+ (NEGATIVE); CLARITY CLOUDY (CLEAR); GLUCOSE NEGATIVE (NEGATIVE); KETONE NEGATIVE (NEGATIVE); LEUKO ESTERASE 1+ (NEGATIVE); NITRITE POSITIVE (NEGATIVE); PH 6.5 (5.0-9.0); SPECIFIC GRAVITY <= 1.005 (1.005-1.030); UROBILINOGEN 0.2 E.U./dl (0.2-1.0)
[2018-01-06 10:12] LABS: COLOR YELLOW (YELLOW)
[2018-01-06 10:14] LABS: BACTERIA 3+; EPITHELIAL CELLS 16-20; WBC 21-30 wbc/hpf (0-5)
[2018-01-06 11:06] LABS: ALBUMIN 3.5 gm/dl (3.1-4.5); ALKALINE PHOSPHATASE 102 U/L (45-117); BUN 10 mg/dl (7-24); CHLORIDE 93 mmol/L (98-107); CREATININE 0.52 mg/dL (0.55-1.02); POTASSIUM 4.2 mmol/L (3.5-5.1); SGOT/AST 22 IU/L (3-35); SGPT/ALT 13 U/L (12-78); SODIUM 127 mmol/L (136-145); TOTAL PROTEIN 7.5 gm/dL (6.4-8.2)
[2018-01-06 11:07] LABS: ACT PARTIAL THROMBO TIME 27.4 SECONDS (20.8-31.5); INTERNATIONAL NORM RATIO 0.9 (2.0-3.5)
[2018-01-06 11:16] LABS: BASO # 0.1 10*3/uL (0.0-0.1); BASO % 0.7 % (0.0-1.0); EOS # 0.1 10*3/uL (0.0-0.4); HEMOGLOBIN 13.5 g/dl (12.0-16.0); LYMPH # 2.6 10*3/uL (1.3-4.4); LYMPH % 36.2 % (27.0-41.0); MEAN CELL VOLUME 92.7 fl (81.0-99.0); MEAN CORPUSCULAR HGB 29.8 pg (27.0-31.0); MEAN CORPUSCULAR HGB CONC 32.1 g/dl (33.0-37.0); MEAN PLATELET VOLUME 10.8 fl (9.6-12.3); MONO # 0.7 10*3/uL (0.1-1.0); MONO % 9.2 % (3.0-9.0); NEUT # 3.7 10*3/uL (2.3-7.9); NEUT % 51.5 % (47.0-73.0); PLATELET COUNT AUTOMATED 183 10*3/uL (130-400); RED BLOOD COUNT 4.53 10*6/uL (4.10-5.10); RED CELL DISTRI WIDTH 16.3 % (0-14.5); WHITE BLOOD COUNT 7.1 10*3/uL (4.8-10.8)
== END | disposition home or self-care (01) ==
LOC: LAB 09:13
PROVIDERS: Urology
DX: Z01.818 Encounter for other preprocedural examination (principal); J44.9 Chronic obstructive pulmonary disease, unspecified; R31.9 Hematuria, unspecified; I10 Essential (primary) hypertension; Z87.891 Personal history of nicotine dependence

== ENCOUNTER → 2018-02-04 | Outpatient (CLI) | payer OTHER ==
[2018-02-04 11:22] LABS: BILIRUBIN NEGATIVE (NEGATIVE); BLOOD 2+ (NEGATIVE); CLARITY CLOUDY (CLEAR); COLOR YELLOW (YELLOW); GLUCOSE NEGATIVE (NEGATIVE); KETONE NEGATIVE (NEGATIVE); LEUKO ESTERASE 3+ (NEGATIVE); NITRITE POSITIVE (NEGATIVE); PH 6.5 (5.0-9.0); SPECIFIC GRAVITY <= 1.005 (1.005-1.030); UROBILINOGEN 0.2 E.U./dl (0.2-1.0)
[2018-02-04 11:48] LABS: WBC TNTC wbc/hpf (0-5)
== END | disposition home or self-care (01) ==
LOC: LAB 10:57
PROVIDERS: Urology
DX: N39.0 Urinary tract infection, site not specified (principal)

== ENCOUNTER 2018-05-15 15:26 | Emergency (ER) | payer OTHER ==
--- NOTE | ~2018-05-15 | EKG ---
[place], [place] ELECTROCARDIOGRAM REPORT NAME: CAMILO AUGUSTE UNIT #: [id number] ROOM: DOCTOR: EPIPHANY DRAFT REPORT BIRTHDATE: [birth year] [facility] Test Date: 2018-05-15 Test Time: 15:29:51 Pat Name: CAMILO AUGUSTE Department: Room: Gender: F Electronics Manufacturer: Raisa Galvan : 1945 Requested By: ZEYAD XIONG Order Number: [id number] Reading MD: Fer Ruffin MD Measurements Intervals [place] Rate: 90 P: 66 VT: 222 QRS: 1 QRSD: 94 T: 71 QT: 358 QTc: 438 Interpretive Statements Sinus rhythm Prolonged VT interval Low voltage, precordial leads Compared to ECG 01/06/2018 10:34:40 First degree AV block now present Low QRS voltage now present Electronically Signed On 05-18-2018 15:34:10 PST by Fer Ruffin MD CM:EKGRPT:ELECTROCARDIOGRAM REPORT 1529 1534 ZEYAD VIGIL DRAFT REPORT ZEYAD XIONG M.D.
[2018-05-15 15:57] LABS: BASO # 0.1 10*3/uL (0.0-0.1); BASO % 0.6 % (0.0-1.0); EOS # 0.2 10*3/uL (0.0-0.4); HEMATOCRIT 36.9 % (37.0-47.0); LYMPH # 4.6 10*3/uL (1.3-4.4); LYMPH % 51.3 % (27.0-41.0); MEAN CELL VOLUME 92.7 fl (81.0-99.0); MEAN CORPUSCULAR HGB 30.2 pg (27.0-31.0); MEAN CORPUSCULAR HGB CONC 32.5 g/dl (33.0-37.0); MEAN PLATELET VOLUME 10.1 fl (9.6-12.3); MONO # 0.7 10*3/uL (0.1-1.0); MONO % 7.4 % (3.0-9.0); NEUT # 3.5 10*3/uL (2.3-7.9); NEUT % 38.5 % (47.0-73.0); PLATELET COUNT AUTOMATED 167 10*3/uL (130-400); RED BLOOD COUNT 3.98 10*6/uL (4.10-5.10); RED CELL DISTRI WIDTH 14.5 % (0-14.5)
[2018-05-15 16:08] LABS: ACT PARTIAL THROMBO TIME 75.6 SECONDS (20.8-31.5); INTERNATIONAL NORM RATIO 0.9 (2.0-3.5)
[2018-05-15 16:14] LABS: BUN 8 mg/dl (7-24); CHLORIDE 93 mmol/L (98-107); CREATININE 0.74 mg/dL (0.55-1.02); POTASSIUM 3.3 mmol/L (3.5-5.1); SGOT/AST 24 IU/L (3-35); SGPT/ALT 24 U/L (12-78); SODIUM 126 mmol/L (136-145); TOTAL PROTEIN 6.9 gm/dL (6.4-8.2)
[2018-05-15 16:16] LABS: ALKALINE PHOSPHATASE 83 U/L (45-117); TROPONIN I < 0.015 ng/ml (<0.045)
[2018-05-15 17:06] VITALS: BP 108/85
[2018-09-03] MEDS ORDERED: VASOTEC5 MG PO (13:06)
[2018-09-03] MEDS ORDERED: MIRAPEX0.5 MG PO (13:08)
[2018-09-03] MEDS ORDERED: CLARITIN10 MG PO (13:09)
[2018-09-03] MEDS ORDERED: AMBIEN10 M1 PO (13:09)
== END 2018-05-15 17:21 | disposition home or self-care (01) ==
LOC: ED 15:26
PROVIDERS: Emergency Medicine
DX: R07.9 Chest pain, unspecified (principal); R06.02 Shortness of breath; M25.512 Pain in left shoulder; R05 Cough; R11.2 Nausea with vomiting, unspecified; J44.9 Chronic obstructive pulmonary disease, unspecified; I25.2 Old myocardial infarction; G89.29 Other chronic pain; E03.9 Hypothyroidism, unspecified; Z88.0 Allergy status to penicillin; Z88.6 Allergy status to analgesic agent; Z79.899 Other long term (current) drug therapy; Z87.891 Personal history of nicotine dependence

== ENCOUNTER → 2018-06-12 | Outpatient (CLI) | payer OTHER ==
[~2018-06-12] MED LIST changes: +MIRAPEX0.5 MG PO; +VASOTEC5 MG PO
[2018-06-12 09:40] LABS: HEMOGLOBIN 12.5 g/dl (12.0-16.0); MEAN CELL VOLUME 94.4 fl (81.0-99.0); MEAN CORPUSCULAR HGB 30.3 pg (27.0-31.0); MEAN CORPUSCULAR HGB CONC 32.1 g/dl (33.0-37.0); MEAN PLATELET VOLUME 10.5 fl (9.6-12.3); RED BLOOD COUNT 4.13 10*6/uL (4.10-5.10); RED CELL DISTRI WIDTH 15.7 % (0-14.5); WHITE BLOOD COUNT 7.6 10*3/uL (4.8-10.8)
[2018-06-12 09:57] LABS: ALBUMIN 3.2 gm/dl (3.1-4.5); ALKALINE PHOSPHATASE 78 U/L (45-117); BUN 13 mg/dl (7-24); CHLORIDE 99 mmol/L (98-107); CHOLESTEROL 215 mg/dL (<200); CREATININE 0.81 mg/dL (0.55-1.02); FREE T4 1.25 ng/dl (0.76-1.46); HDL CHOLESTEROL 75 mg/dl (40-60); LDL CHOLESTEROL 112 mg/dL (9-159); POTASSIUM 4.4 mmol/L (3.5-5.1); SGOT/AST 15 IU/L (3-35); SGPT/ALT 13 U/L (12-78); SODIUM 134 mmol/L (136-145); TOTAL PROTEIN 7.2 gm/dL (6.4-8.2); TRIGLYCERIDES 142 mg/dl (<150); VLDL CHOLESTEROL 28 mg/dL (6-40)
== END | disposition home or self-care (01) ==
LOC: LAB 08:55
PROVIDERS: Family Medicine
DX: E03.9 Hypothyroidism, unspecified (principal); E78.00 Pure hypercholesterolemia, unspecified; I10 Essential (primary) hypertension; F41.1 Generalized anxiety disorder; E74.00 Glycogen storage disease, unspecified

== ENCOUNTER → 2018-08-25 | Outpatient (CLI) | payer OTHER ==
[2018-08-25 14:19] LABS: BILIRUBIN NEGATIVE (NEGATIVE); BLOOD 1+ (NEGATIVE); CLARITY CLOUDY (CLEAR); COLOR YELLOW (YELLOW); GLUCOSE NEGATIVE (NEGATIVE); KETONE NEGATIVE (NEGATIVE); LEUKO ESTERASE 3+ (NEGATIVE); NITRITE POSITIVE (NEGATIVE); PH 6.5 (5.0-9.0); UROBILINOGEN 0.2 E.U./dl (0.2-1.0)
[2018-08-25 14:25] LABS: BACTERIA 4+; WBC TNTC wbc/hpf (0-5)
== END | disposition home or self-care (01) ==
LOC: LAB 13:26
PROVIDERS: Urology
DX: R31.9 Hematuria, unspecified (principal)

== ENCOUNTER → 2018-09-03 | Outpatient (CLI) | payer OTHER ==
--- NOTE | 2018-09-03 10:10 | NUR ---
PT HERE FOR LAB DRAW AND MEDIPORT FLUSH. [facility] MEDIPORT ACCESSED WITH NONCORING NEEDLE AFTER SITE CLEANSED PER P/P. PROMPT BLOOD RETURN NOTED. LABS SENT TO MAIN LAB. FLUSHED WITH HEPARIN PER PP. NEEDLE REMOVED. DRESSINGS APPLIED. TOLERATED WELL. KAREEN WEEKS RN
[2018-09-03 10:38] LABS: HEMATOCRIT 37.8 % (37.0-47.0); HEMOGLOBIN 12.4 g/dl (12.0-16.0); MEAN CORPUSCULAR HGB 31.2 pg (27.0-31.0); MEAN CORPUSCULAR HGB CONC 32.8 g/dl (33.0-37.0); MEAN PLATELET VOLUME 10.4 fl (9.6-12.3); RED BLOOD COUNT 3.98 10*6/uL (4.10-5.10); RED CELL DISTRI WIDTH 15.4 % (0-14.5); WHITE BLOOD COUNT 6.6 10*3/uL (4.8-10.8)
[2018-09-03 11:00] LABS: ALBUMIN 3.5 gm/dl (3.1-4.5); ALKALINE PHOSPHATASE 72 U/L (45-117); BUN 12 mg/dl (7-24); CHLORIDE 97 mmol/L (98-107); CHOLESTEROL 220 mg/dL (<200); CREATININE 0.86 mg/dL (0.55-1.02); FREE T4 1.25 ng/dl (0.76-1.46); HDL CHOLESTEROL 93 mg/dl (40-60); LDL CHOLESTEROL 112 mg/dL (9-159); POTASSIUM 4.4 mmol/L (3.5-5.1); SGOT/AST 22 IU/L (3-35); SGPT/ALT 16 U/L (12-78); SODIUM 128 mmol/L (136-145); TRIGLYCERIDES 75 mg/dl (<150); VLDL CHOLESTEROL 15 mg/dL (6-40)
== END | disposition home or self-care (01) ==
LOC: LAB 09:47
PROVIDERS: Family Medicine
DX: Z45.2 Encounter for adjustment and management of vascular access device (principal); I10 Essential (primary) hypertension; E78.00 Pure hypercholesterolemia, unspecified; E03.9 Hypothyroidism, unspecified; E55.9 Vitamin D deficiency, unspecified

== ENCOUNTER 2019-01-21 14:22 | Inpatient (IN) | payer OTHER, MEDICAID ==
[~2019-01-21] VITALS: Ht 154.9 cm; Wt 67.3 kg
[2019-01-21 14:23] VITALS: BP 160/100
[2019-01-21 14:53] LABS: BASO # 0.1 10*3/uL (0.0-0.1); BASO % 0.9 % (0.0-1.0); EOS # 0.1 10*3/uL (0.0-0.4); EOS % 1.6 % (1.0-4.0); HEMOGLOBIN 12.4 g/dl (12.0-16.0); LYMPH # 2.3 10*3/uL (1.3-4.4); LYMPH % 30.3 % (27.0-41.0); MEAN CELL VOLUME 95.4 fl (81.0-99.0); MEAN CORPUSCULAR HGB CONC 33.5 g/dl (33.0-37.0); MEAN PLATELET VOLUME 9.6 fl (9.6-12.3); MONO # 0.8 10*3/uL (0.1-1.0); NEUT # 4.2 10*3/uL (2.3-7.9); NEUT % 55.8 % (47.0-73.0); PLATELET COUNT AUTOMATED 161 10*3/uL (130-400); RED BLOOD COUNT 3.88 10*6/uL (4.10-5.10); WHITE BLOOD COUNT 7.6 10*3/uL (4.8-10.8)
[2019-01-21 15:00] VITALS: BP 158/92
[2019-01-21 15:13] LABS: ACT PARTIAL THROMBO TIME 31.9 SECONDS (20.0-32.1); INTERNATIONAL NORM RATIO 0.9 (2.0-3.5)
[2019-01-21 15:16] LABS: ALBUMIN 3.3 gm/dl (3.1-4.5); ALKALINE PHOSPHATASE 82 U/L (45-117); BUN 10 mg/dl (7-24); CHLORIDE 99 mmol/L (98-107); CREATININE 0.66 mg/dL (0.55-1.02); POTASSIUM 3.6 mmol/L (3.5-5.1); SGOT/AST 30 IU/L (3-35); SGPT/ALT 17 U/L (12-78); SODIUM 133 mmol/L (136-145); TOTAL PROTEIN 7.3 gm/dL (6.4-8.2)
[2019-01-21 15:19] LABS: TROPONIN I < 0.015 ng/ml (<0.045)
[2019-01-21 16:00] VITALS: BP 155/99
[2019-01-21 17:00] VITALS: BP 142/92
[2019-01-21 19:30] VITALS: BP 148/94
[2019-01-21 20:00] VITALS: BP 151/89
--- NOTE | 2019-01-21 20:00 | NUR ---
A 73, admitted to 4E, under the services of Dr. VIVEK SALGUERO,SHABBIR Padron with a diagnosis of SOB/COPD EXACERBATION. Chief complaint is SOB. Patient arrived via bed from ER. Monitor applied. Initial assessment completed. Vital signs taken and recorded. DR. VIVEK SALGUERO,SHABBIR Padron notified of admission to the unit. Orders received. See assessment for past medical history, medications and allergies. Patient oriented to unit. Clothing/patient valuable form completed. RAAD CUEVAS
[2019-01-21] MEDS ORDERED: NORCO 10-325 T1 EACH PO (20:16)
[2019-01-21] MEDS ORDERED: REMERON15 M2 PO (20:17)
--- NOTE | 2019-01-21 20:23 | NUR ---
CALLED AND INFORMED OF NEWLY UPDATED HOMES. STATED TO HOLD NORCO AND D/C TYLENOL PATIENTS ALLERGY. STATED TO CONTINUE KACY
--- NOTE | 2019-01-21 20:28 | NUR ---
CALLED AND INFORMED OF CONSULT. STATED IF PATIENT ACCEPTS TO DO BRONCH TOMORROW TO CALL UNDERWEAR FINISHER AND ADD TO THE SCHEDULE. PATIENT STATED SHE WILLING TO DO BRONCH TOMORROW.
--- NOTE | 2019-01-21 20:52 | NUR ---
PATIENT MEDICATED WITH AMBIEN FOR C/O INSOMNIA. WILL MONITOR
--- NOTE | 2019-01-21 20:55 | NUR ---
PATIENT MEDICATED WITH DILAUDID FOR C/O BACK PAIN 02/04. WILL MONITOR
--- NOTE | 2019-01-21 21:52 | NUR ---
AMBIEN APPEARS TO BE EFFECTIVE. PATIENT RESTING IN BED, EYES CLSOED. NO DISTRESS NOTED. CALL LIGHT LEFT WITHIN REACH
--- NOTE | 2019-01-21 21:55 | NUR ---
DILAUDID EFFECTIVE FOR BACK PAIN.
[2019-01-22] VITALS (8 sets, daily range): BP systolic 107–171; BP diastolic 59–96
--- NOTE | 2019-01-22 03:25 | NUR ---
YOSEF MEDICATED WITH DILAUDID FOR C/O BACK PAIN 02/04 WILL MONITOR
--- NOTE | 2019-01-22 04:25 | NUR ---
DILAUDID APPEARS EFFECTIVE. PATIENTS EYES CLOSED NO DISTRESS NOTED. CALL LIGHT WITHIN REACH
--- NOTE | 2019-01-22 14:00 | NUR ---
LATE ENTRY: Financial Report Service Sales Agent in to talk to patient. Patient states lives at home alone with her friends/neighbors checking in on her. There are 0 steps in the home. Physician: Dr. Luis Alfredo Briscoe [facility]: [facility] Home health services: none Patient's level of ADLs: INDEPENDENT Patient has working utilities: yes DME: O2 @ 3L [place], nebulizer, portable O2 tanks, O2 supplier [employer] Follow-up physician's appointment after d/c: she prefers to make her own follow up appt after discharge Does patient want to access PORTAL?: no Discharge plan discussed with patient. She lives at home alone with her friends/neighbors checking in on her. She is independent in her ADLs and ambulation. Discussed home health care services and she denies any home needs at this time. She would like information about [facility]. Discussed cost and she states she is unable to afford that. When medically stable she will be discharged to home. She is unsure of a ride on discharge at this time. PAPO PADILLA
--- NOTE | 2019-01-22 20:25 | NUR ---
NIYAH GIVEN FOR C/O INSOMNIA. SEE MAR. WILL MONITOR.
--- NOTE | 2019-01-22 21:18 | NUR ---
SLEEPING, NO SXS OF DISTRESS NOTED. CALL LIGHT IN REACH. BED ALARM ON. RESPERS ESY, REGUALR.
[2019-01-23] VITALS: BP 121/66
--- NOTE | 2019-01-23 02:37 | NUR ---
CALLED TO ROOM FOR C/O CHRONIC BACK PAIN RATED /10. DILAUDID GIVEN FOR COMPLAINTS. CALL LIGHT IN REACH. WILL MONITOR.
--- NOTE | 2019-01-23 03:45 | NUR ---
SLEEPING, DILAUDID SEEMS TO BE EFFECTIVE FOR EARLIER COMPLAINTS OF PAIN. CALL LIGHT IN REACH. NO SXS OF DISTRESS NOTED.
--- NOTE | 2019-01-23 06:09 | NUR ---
TOLERATED ROUTINE PO MEDS WELL. NO COMPLAINTS VOICED. CALL LIGHT WITHIN REACH.
[2019-01-23 08:00] VITALS: BP 181/97
--- NOTE | 2019-01-23 08:00 | NUR ---
BEDSIDE REPORT RECIEVED FROM DANILO LARA. PT STATES SHE IS HAVING BACK PAIN RATED AT A 10. PT INFORMED OF NEXT DOSE. WILL CONTINUE TO MONITOR.
--- NOTE | 2019-01-23 08:10 | NUR ---
ORDERS OBTAINED FROM DR. BUSBY FOR PAIN MEDICATIONS.
--- NOTE | 2019-01-23 08:30 | NUR ---
PT MEDICATED WITH NORCO FOR BACK PAIN. WILL MONITOR FOR EFFECTIVENESS.
[2019-01-23 12:00] VITALS: BP 181/85
[2019-01-23 14:06] LABS: ACID FAST SPEC PROCESSING Concentration (.)
[2019-01-23 16:00] VITALS: BP 168/87
[2019-01-23 20:00] VITALS: BP 152/92
--- NOTE | 2019-01-23 20:37 | NUR ---
PT C/O BACK PAIN. MEDICATED WITH PRN NORCO. WILL CHECK EFFECTIVENESS. CALL LIGHT WITHIN REACH.
--- NOTE | 2019-01-23 21:30 | NUR ---
PT STATED SHE IS ALWAYS IN PAIN BECAUSE OF HER BACK BUT PAIN MED HELPED SOME. CALL LIGHT WITHIN REACH. WILL CONTINUE TO MONITOR.
[2019-01-24] VITALS: BP 144/69
--- NOTE | 2019-01-24 03:30 | NUR ---
PT C/O GENERALIZED BACK PAIN RATING IT A 10/10. MEDICATED WITH PRN NORCO. CALL LIGHT WITHIN REACH. WILL CHECK EFFECTIVENESS.
--- NOTE | 2019-01-24 04:30 | NUR ---
PT STATES PAIN MED WAS EFFECTIVE. RATING PAIN AN 8/10. CALL LIGHT WITHIN REACH, WILL MONITOR.
[2019-01-24 08:45] VITALS: BP 186/98
--- NOTE | 2019-01-24 09:36 | NUR ---
MEDICATED WITH PRN PO NORCO FOR PAIN TO CHEST RELATED TO PERSISTANT COUGHING.
--- NOTE | 2019-01-24 10:10 | NUR ---
MEDICATED WITH PRN IV ZOFRAN FOR NAUSEA.
--- NOTE | 2019-01-24 10:19 | NUR ---
PRN PO NORCO EFFECTIVE, PER PATIENT.
--- NOTE | 2019-01-24 11:00 | NUR ---
PRN IV ZOFRAN EFFECTIVE, PER PATIENT.
[2019-01-24 12:00] VITALS: BP 138/96
--- NOTE | 2019-01-24 15:35 | NUR ---
MEDICATED WITH PRN PO NORCO FOR PAIN TO CHEST R/T PERSISTANT COUGH.
[2019-01-24 16:00] VITALS: BP 140/94
--- NOTE | 2019-01-24 16:53 | NUR ---
PRN PO NORCO EFFECTIVE, PER PATIENT.
[2019-01-24 20:00] VITALS: BP 140/95
--- NOTE | 2019-01-24 22:25 | NUR ---
PT REQUESTED AND RECIEVED A NAVEEN AND NIYAH FOR PAIN AND INSOMNIA. WILL MONITOR FOR EFFECTIVENESS.
[2019-01-25] VITALS: BP 155/72
--- NOTE | 2019-01-25 07:10 | NUR ---
ARRIVED ON SHIFT, INTRODUCED TO PATIENT, BEDSIDE REPORT RECEIVED. NO NEEDS VOICED AT THIS TIME, WHITE BOARD UPDATED.
[2019-01-25 07:17] LABS: BASO % 0.2 % (0.0-1.0); HEMATOCRIT 39.1 % (37.0-47.0); HEMOGLOBIN 12.4 g/dl (12.0-16.0); LYMPH # 0.9 10*3/uL (1.3-4.4); LYMPH % 14.3 % (27.0-41.0); MEAN CELL VOLUME 97.3 fl (81.0-99.0); MEAN CORPUSCULAR HGB 30.8 pg (27.0-31.0); MEAN CORPUSCULAR HGB CONC 31.7 g/dl (33.0-37.0); MEAN PLATELET VOLUME 10.3 fl (9.6-12.3); MONO # 0.3 10*3/uL (0.1-1.0); MONO % 4.8 % (3.0-9.0); NEUT # 4.8 10*3/uL (2.3-7.9); NEUT % 79.7 % (47.0-73.0); PLATELET COUNT AUTOMATED 150 10*3/uL (130-400); RED BLOOD COUNT 4.02 10*6/uL (4.10-5.10); RED CELL DISTRI WIDTH 13.9 % (0-14.5)
[2019-01-25 07:51] LABS: CREATININE 0.85 mg/dL (0.55-1.02)
[2019-01-25 08:00] VITALS: BP 172/80
--- NOTE | 2019-01-25 10:30 | NUR ---
C/O PAIN MID CHEST AND MID BACK, STATES DUE TO COUGHING. REPOSITIONING PROVIDED MINIMAL RELIEF. MEDICATED PO AND ATIVAN - SEE MAR. TALKATIVE, CROTCHETING, WATCHING TV. RATES 8/10 SCALE. 1100 STATES MEDICATION DID HELP BECAUSE IT DIDN'T GET ANY WORSE. CONTINUES TO RATE 8/10 SCALE. TALKING TO STAFF, JOKING WITH STAFF. DESTINY BULLOCK
--- NOTE | 2019-01-25 11:00 | NUR ---
Deputy County Attorney in to see patient. No new needs or request at this time. She denies any home needs. When medically stable she will be discharged to home. Discussed discharge planning with Dr. Roca. Awaiting clearance from Dr. Schwartz to discharge patient.
--- NOTE | 2019-01-25 11:01 | NUR ---
PATIENT REPORTS GOOD RELIEF FROM NORCO GIVEN AT 1001
[2019-01-25 12:00] VITALS: BP 148/84
--- NOTE | 2019-01-25 12:37 | NUR ---
MEDICATED WITH ZOFRAN FOR C/O NAUSEA. CALL LIGHT IN REACH. VISITOR AT BEDSIDE. WILL MONITOR.
--- NOTE | 2019-01-25 13:35 | NUR ---
ZOFRAN EFFECTIVE, PATIENT REPORTS THAT SHE HAS ANY FURTHER NAUSEA AT THIS TIME
--- NOTE | 2019-01-25 15:56 | NUR ---
PATIENT C/O BACK AND CHEST PAIN, DESCRIBES A PAIN PAIN 8/10 MEDICATED WITH NORCO ORDERED.
[2019-01-25 16:00] VITALS: BP 149/82
[2019-01-25 20:00] VITALS: BP 138/76
--- NOTE | 2019-01-25 20:57 | NUR ---
PATIENT IS RESTING IN BED WITH EASY AND REGULAR RESPERS ON ROOM AIR. ASSESSMENT IS COMPLETE WITH NO C/O OR S/S OF DISTRESS NOTED AT THIS TIME. BED IS LOW, LOCKED, ALARMED, AND CALL LIGHT IS WITHIN REACH. WILL CONTNINUE TO MONITOR SEE SHIFT ASSESSMENT.
--- NOTE | 2019-01-25 21:03 | NUR ---
PRN NEVAEHIEN GIVEN FOR C/O INSOMNIA. CALL LIGHT IS WITHIN REACH, WILL MONITOR EFFECT.
--- NOTE | 2019-01-25 21:58 | NUR ---
PRN NORCO AND ATIVAN GIVEN AT THIS TIME PER PATIENT REQUEST FOR PAIN AND ANXIETY. CALL LIGHT IS WITHIN REACH, WILL MONITOR EFFECT.
--- NOTE | 2019-01-25 22:00 | NUR ---
PRN MEDICATIONS SEEM EFFECTIVE, PATIENT IS SLEEPING WITH EASY AND REGULAR RESPERS ON ROOM AIR. CALL LIGHT IS WITHIN REACH.
[2019-01-26] VITALS: BP 126/76
--- NOTE | 2019-01-26 06:10 | NUR ---
PRN MARGARETCO AND AMBIEN GIVEN AT THIS TIME FOR C/O ANXIETY AND PAIN. CALL LIGHT IS WITHIN REACH, WILL MONITOR EFFECT.
--- NOTE | 2019-01-26 07:15 | NUR ---
PATIENT IS SLEEPING FOR BEDSIDE SHIFT REPORT, PRN MEDICATIONS APPEAR EFFECTIVE. CALL LIGHT IS WITHIN REACH.
[2019-01-26 08:00] VITALS: BP 148/74
--- NOTE | 2019-01-26 11:06 | NUR ---
Case discussed with Dr. Roca. Dr. Roca suggest LTAC for acute respiratory failure. C Java Developer in to see patient. Discussed LTAC and she refuses. Discussed short term SNF and she refuses. Patient states "I am not leaving this facility until I am feeling better. I signed that paper yesterday that said if I think I am being discharged too soon that I can complete an appeal." development planner and Dr. Roca notified.
[2019-01-26 12:00] VITALS: BP 128/96
--- NOTE | 2019-01-26 12:43 | NUR ---
MEDICATED WITH NORCO AND ZOFRAN PER ORDERS AND REQUEST FOR NAUSEA NAD BACK PAIN.
--- NOTE | 2019-01-26 13:30 | NUR ---
NAVEEN TURPIN HELPED.
[2019-01-26 16:00] VITALS: BP 106/85
--- NOTE | 2019-01-26 18:32 | NUR ---
MEDICATED WITH PRN ATIVAN AND NORCO PER ORDERS AND REQUEST.
--- NOTE | 2019-01-26 19:19 | NUR ---
PATIENT RESTING IN BED. ARROUSES EASILY. DENIES NEEDS AT THIS TIME. BED IN LOWEST POSITION, CALL LIGHT IN REACH
[2019-01-26 20:00] VITALS: BP 138/69
[2019-01-27] VITALS: BP 97/50
[2019-01-27 01:22] VITALS: BP 130/78
--- NOTE | 2019-01-27 01:29 | NUR ---
MEDICATED WITH PRN ATIVAN FOR C/O ANXIOUSNESS AND NORCO FOR C/O BACK PAIN RATED 8/10 ON A 0/10 PAIN SCALE. WILL MONITOR
--- NOTE | 2019-01-27 02:42 | NUR ---
MEDICATED WITH PRN ZOFRAN FOR C/O NAUSEA. WILL MONITOR
[2019-01-27 08:00] VITALS: BP 136/72
--- NOTE | 2019-01-27 08:06 | NUR ---
MEDICATED WITH PRN ATIVAN AND NORCO PER ORDERS AND REQUEST. C/O BACK PAIN RATED AT A 10.
--- NOTE | 2019-01-27 09:10 | NUR ---
WAN AND NAVEEN HELPED. DR. FLORES HAS ROUNDED.
[2019-01-27] MEDS ORDERED: CIPRO500 MG PO (09:52)
[2019-01-27] MEDS ORDERED: MEDROL DOSEPAK4 MG PO (09:52)
--- NOTE | 2019-01-27 10:50 | NUR ---
PATIENT IS BEING DISCHARGED TO HOME.
[2019-03-04 10:07] LABS: ACID FAST CULTURE Negative (.)
[2019-04-06 13:09] LABS: ORGANISM ID, MOLD Final report (.); RESULT 1 Penicillium species (.)
== END 2019-01-27 10:50 | disposition home or self-care (01) | DRG 189 ==
LOC: ED 14:22 → 4E 17:12 → EDHOLD 17:12 → 4E 19:00
PROVIDERS: Emergency Medicine; Internal Medicine Critical Care Medicine; ADMIT Internal Medicine
PROC: 0BC78ZZ Extirpation of Matter from Left Main Bronchus, Via Natural or Artificial Opening Endoscopic (ICD-10-PCS; principal; 2019-01-22)
PROC: 0BCB8ZZ Extirpation of Matter from Left Lower Lobe Bronchus, Via Natural or Artificial Opening Endoscopic (ICD-10-PCS; principal; 2019-01-22)
PROC: 0BC88ZZ Extirpation of Matter from Left Upper Lobe Bronchus, Via Natural or Artificial Opening Endoscopic (ICD-10-PCS; principal; 2019-01-22)
PROC: 0BC68ZZ Extirpation of Matter from Right Lower Lobe Bronchus, Via Natural or Artificial Opening Endoscopic (ICD-10-PCS; principal; 2019-01-22)
PROC: 0BC28ZZ Extirpation of Matter from Carina, Via Natural or Artificial Opening Endoscopic (ICD-10-PCS; principal; 2019-01-22)
PROC: 0BC48ZZ Extirpation of Matter from Right Upper Lobe Bronchus, Via Natural or Artificial Opening Endoscopic (ICD-10-PCS; principal; 2019-01-22)
PROC: 0BC38ZZ Extirpation of Matter from Right Main Bronchus, Via Natural or Artificial Opening Endoscopic (ICD-10-PCS; principal; 2019-01-22)
PROC: 0BC58ZZ Extirpation of Matter from Right Middle Lobe Bronchus, Via Natural or Artificial Opening Endoscopic (ICD-10-PCS; principal; 2019-01-22)
PROC: 0BC98ZZ Extirpation of Matter from Lingula Bronchus, Via Natural or Artificial Opening Endoscopic (ICD-10-PCS; principal; 2019-01-22)
PROC: 0BC18ZZ Extirpation of Matter from Trachea, Via Natural or Artificial Opening Endoscopic (ICD-10-PCS; principal; 2019-01-22)
DX: J96.20 Acute and chronic respiratory failure, unspecified whether with hypoxia or hypercapnia (principal); J44.0 Chronic obstructive pulmonary disease with (acute) lower respiratory infection; J44.1 Chronic obstructive pulmonary disease with (acute) exacerbation; J45.51 Severe persistent asthma with (acute) exacerbation; E87.1 Hypo-osmolality and hyponatremia; T17.590A Other foreign object in bronchus causing asphyxiation, initial encounter; J20.9 Acute bronchitis, unspecified; K21.0 Gastro-esophageal reflux disease with esophagitis; E03.9 Hypothyroidism, unspecified; D50.9 Iron deficiency anemia, unspecified; K59.09 Other constipation; F41.1 Generalized anxiety disorder; M47.896 Other spondylosis, lumbar region; I10 Essential (primary) hypertension; G25.81 Restless legs syndrome; F51.01 Primary insomnia; F17.210 Nicotine dependence, cigarettes, uncomplicated; K57.90 Diverticulosis of intestine, part unspecified, without perforation or abscess without bleeding; Z96.612 Presence of left artificial shoulder joint; Z96.611 Presence of right artificial shoulder joint; J30.1 Allergic rhinitis due to pollen; G89.29 Other chronic pain; M54.5 Low back pain; X58.XXXA Exposure to other specified factors, initial encounter; Y93.89 Activity, other specified; Y92.89 Other specified places as the place of occurrence of the external cause; Y99.8 Other external cause status; Z99.81 Dependence on supplemental oxygen; Z90.49 Acquired absence of other specified parts of digestive tract; Z90.710 Acquired absence of both cervix and uterus; Z71.6 Tobacco abuse counseling; Z88.0 Allergy status to penicillin; Z88.6 Allergy status to analgesic agent; Z88.8 Allergy status to other drugs, medicaments and biological substances; Z82.49 Family history of ischemic heart disease and other diseases of the circulatory system; Z80.8 Family history of malignant neoplasm of other organs or systems; Z87.11 Personal history of peptic ulcer disease

== ENCOUNTER 2019-04-19 08:41 | Inpatient (IN) | payer OTHER ==
[2019-04-19] VITALS (8 sets, daily range): BP systolic 116–145; BP diastolic 59–83
[~2019-04-19] VITALS: Ht 157.4 cm; Wt 70.5 kg
[~2019-04-19 08:41] MED LIST changes: +NORCO 10-325 T1 EACH PO; +REMERON15 M2 PO
--- NOTE | 2019-04-19 08:57 | NUR ---
PT REFUSES TO HAVE SECOND SET OF BLOOD CULTURES DRAWN. PT ATATES "NO NEEDLES".
[2019-04-19 09:10] LABS: BASO # 0.1 10*3/uL (0.0-0.1); BASO % 0.6 % (0.0-1.0); EOS # 0.2 10*3/uL (0.0-0.4); EOS % 1.7 % (1.0-4.0); HEMATOCRIT 36.1 % (37.0-47.0); HEMOGLOBIN 11.4 g/dl (12.0-16.0); LYMPH # 3.4 10*3/uL (1.3-4.4); LYMPH % 39.9 % (27.0-41.0); MEAN CELL VOLUME 96.8 fl (81.0-99.0); MEAN CORPUSCULAR HGB 30.6 pg (27.0-31.0); MEAN CORPUSCULAR HGB CONC 31.6 g/dl (33.0-37.0); MONO # 0.7 10*3/uL (0.1-1.0); MONO % 8.5 % (3.0-9.0); NEUT # 4.2 10*3/uL (2.3-7.9); NEUT % 48.8 % (47.0-73.0); PLATELET COUNT AUTOMATED 158 10*3/uL (130-400); RED BLOOD COUNT 3.73 10*6/uL (4.10-5.10); RED CELL DISTRI WIDTH 14.7 % (0-14.5); WHITE BLOOD COUNT 8.6 10*3/uL (4.8-10.8)
[2019-04-19 09:21] LABS: ACT PARTIAL THROMBO TIME 30.2 SECONDS (20.0-32.1); INTERNATIONAL NORM RATIO 0.8 (2.0-3.5)
[2019-04-19 09:28] LABS: ALBUMIN 3.1 gm/dl (3.1-4.5); ALKALINE PHOSPHATASE 108 U/L (45-117); BUN 9 mg/dl (7-24); CHLORIDE 100 mmol/L (98-107); CREATININE 0.71 mg/dL (0.55-1.02); POTASSIUM 3.8 mmol/L (3.5-5.1); SGOT/AST 22 IU/L (3-35); SGPT/ALT 16 U/L (12-78); SODIUM 134 mmol/L (136-145); TOTAL PROTEIN 7.1 gm/dL (6.4-8.2)
[2019-04-19 09:29] LABS: TROPONIN I < 0.015 ng/ml (<0.045)
--- NOTE | 2019-04-19 11:02 | NUR ---
CCA 73, admitted to 4E, under the services of Dr. VIVEK SALGUERO,SHABBIR Padron with a diagnosis of COPD EXACERBATION. Chief complaint is SOB. Patient arrived via ambulatory from ER. Monitor applied. Initial assessment completed. Vital signs taken and recorded. DR. VIVEK SALGUERO,SHABBIR Padron notified of admission to the unit. Orders received. See assessment for past medical history, medications and allergies. Patient and/or family oriented to unit. [address] visitation policy reviewed. Clothing/patient valuable form completed. MARCELA PATRICK.
[2019-04-19] MEDS ORDERED: OXYBUTYNIN5 MG PO (11:35)
[2019-04-19] MEDS ORDERED: ADVAIR 250/501 EA INH (11:45)
[2019-04-19] MEDS ORDERED: VENT7GM INH (11:46)
--- NOTE | 2019-04-19 11:47 | NUR ---
MED REC UPDATED PER POLICY.
--- NOTE | 2019-04-19 13:13 | NUR ---
NOTIIFIED OF CONSULT. NEW ORDERS RECEIVED.
--- NOTE | 2019-04-19 13:36 | NUR ---
PT MEDICATED WITH PO NORCO PER PRN ORDER FOR C/O BACK PAIN. CHRONIC PER PT. RATES PAIN 01/05. WILL MONITOR EFFECTIVENESS.
--- NOTE | 2019-04-19 13:52 | NUR ---
Er Manager in to talk to patient. Patient states lives at home alone with her friends/neighbors checking in on her. There are 0 steps in the home. Physician: Dr. Luis Alfredo Briscoe [facility] Home health services: none Patient's level of ADLs: INDEPENDENT Patient has working utilities: yes DME: O2 @ 3L [place], nebulizer, portable O2 tanks, O2 supplier [facility] Follow-up physician's appointment after d/c: she prefers to make her own follow up appt after discharge Does patient want to access PORTAL?: no Discharge plan discussed with patient. She lives at home alone with her friends/neighbors checking in on her. She is independent in her ADLs and ambulation. Discussed home health care services and she denies any home needs at this time. When medically stable she will be discharged to home. She states her friend will provide transportation on discharge. PAPO PADILLA
--- NOTE | 2019-04-19 14:45 | NUR ---
NAVEEN EFFECTIVE PER PT.
--- NOTE | 2019-04-19 16:48 | NUR ---
IN TO SEE PATIENT.
--- NOTE | 2019-04-19 20:13 | NUR ---
NORCO GIVEN FOR C/O BACK PAIN .. RATED PAIN A 8/10 WITH 10 BEING THE WORST. SEE EMAR. REINFORCED USE OF CALL LIGHT.
[2019-04-20] VITALS: BP 168/88
--- NOTE | 2019-04-20 02:19 | NUR ---
PATIENT MEDICATED WITH NORCO PER PRN ORDER FOR C/O BACK/NECK PAIN. RATED PAIN A 8/10 WITH 10 BEING THE WORST. SEE EMAR. REINFORCED USE OF CALL LIGHT
--- NOTE | 2019-04-20 08:20 | NUR ---
NORCO GIVEN PER PRN ORDER FOR C/O BACK PAIN. RATES PAIN 9/10. CHRONIC PAIN PER PT. WILL MONITOR EFFECTIVENESS.
--- NOTE | 2019-04-20 09:00 | NUR ---
Infrastructure Director in to see patient. Discussed home health care services and she asked how her friend could become her healthcare science specialist. Instructed her to call Pily at [employer]. She states she has another friend that works for [employer] and she would reach out to Pily for information. She would also life HPOA papers completed. HPOA papers given to patient to complete. She states she will complete them later when she is not in so much pain and her friend comes to visit her. She states she did receive a Vicodin recently. When medically stable she will be discharged to home.
--- NOTE | 2019-04-20 09:30 | NUR ---
NORCO EFFECTIVE PER PT. WILL CONTINUE TO MONITOR.
--- NOTE | 2019-04-20 10:40 | NUR ---
HPOA and living will paperwork completed and witnessed by CM and SW. Copy placed in chart, original given to patient along with 3 copies.
[2019-04-20 12:00] VITALS: BP 162/42
--- NOTE | 2019-04-20 14:05 | NUR ---
NORCO GIVEN PER PRN ORDER FOR C/O BACK PAIN. CHRONIC PAIN PER PT. WILL MONITOR EFFECTIVENESS.
[2019-04-20 16:00] VITALS: BP 153/79
--- NOTE | 2019-04-20 18:10 | NUR ---
PT GIVEN DILAUDID 0.5 MG VIA MEDIPORT AT THIS TIME FOR BACK PAIN. WILL MONITOR FOR EFFECTIVENESS. ALL SAFETY MEASURES IN PLACE. CALL LIGHT IN REACH.
[2019-04-20 20:00] VITALS: BP 132/69
--- NOTE | 2019-04-20 21:11 | NUR ---
PATIENT STATES THAT NORCO WAS SOME WHAT EFFECTIVE FOR LOWER BACK PAIN. WILL MONITOR.
--- NOTE | 2019-04-20 21:15 | NUR ---
PATIENT REQUESTING MEDICATION FOR SLEEP.AMBIEN ADMINISTERED PRESCRIBED. WILL MONITOR FOR EFFECTIVENESS.
--- NOTE | 2019-04-20 23:00 | NUR ---
PATIENT RESTING WITH EYES CLOSED. RESPIRATIONS EASY AND UNLABORED.3LNC INTACT. CALL LIGHT IN REACH. WILL MONITOR.
[2019-04-21] VITALS: BP 118/61
--- NOTE | 2019-04-21 05:38 | NUR ---
PATIENT REQUESTING PAIN MEDICATION FOR BACK PAIN RATED 8/10 ON 0/10 SCALE. DILAUDID ADMINISTERED PRESCRIBED. WILL MONITOR FOR EFFECTIVENESS.
[2019-04-21 08:00] VITALS: BP 152/88
--- NOTE | 2019-04-21 08:59 | NUR ---
NORCO GIVEN PER PATIENT REQUEST FOR COMPLAINTS OF BACK PAIN RATED 7/10. WILL ASSESS EFFECTIVENESS.
--- NOTE | 2019-04-21 10:11 | NUR ---
NORCO EFFECTIVE PER PATIENT. WILL CONTINUE TO MONITOR.
[2019-04-21 12:00] VITALS: BP 110/52
--- NOTE | 2019-04-21 12:38 | NUR ---
DILAUDID GIVEN PER PATIENT REQUEST FOR COMPLAINTS OF BACK PAIN RATED 8/10. WILL ASSESS EFFECTIVENESS.
--- NOTE | 2019-04-21 13:30 | NUR ---
DILAUDID EFFECTIVE PER PATIENT. WILL CONTINUE TO MONITOR.
--- NOTE | 2019-04-21 15:19 | NUR ---
Patient resting with no c/o discomfort. Respirations easy and regular. Vital signs stable. No overt distress. FAMILY AT BEDSIDE. SHASTA VALENZUELA
[2019-04-21 16:00] VITALS: BP 131/73
--- NOTE | 2019-04-21 16:46 | NUR ---
NORCO GIVEN PER PATIENT REQUEST FOR BACK PAIN RATED 8/10. WILL ASSESS EFFECTIVENESS.
--- NOTE | 2019-04-21 18:29 | NUR ---
DILAUDID GIVEN PER PATIENT REQUEST FOR COMPLAINTS OF BACK PAIN RATED 9/10. WILL ASSESS EFFECTIVENESS.
--- NOTE | 2019-04-21 19:20 | NUR ---
REPORT RECEIVED FROM SHASTA LARA. PT LYING IN BED AT THIS TIME. NO COMPLAINTS VOICED AT THIS TIME. CALL LIGHT IN REACH.
--- NOTE | 2019-04-21 20:58 | NUR ---
AMBIEN GIVEN PER ORDER FOR COMPLAINTS OF INSOMNIA. NORCO GIVEN PER ORDER FOR COMPLAINTS OF CHRONIC BACK PAIN. WILL MONITOR EFFECTIVENESS.
--- NOTE | 2019-04-21 23:42 | NUR ---
NAVEEN AND NEVAEHIEN APPEAR EFFECTIVE. PT SLEEPING AT THIS TIME.
[2019-04-22] VITALS (9 sets, daily range): BP systolic 122–181; BP diastolic 51–96
--- NOTE | 2019-04-22 00:30 | NUR ---
DILAUDID GIVEN FOR CHRONIC BACK PAIN PER ORDER. WILL MONITOR EFFECTIVENESS.
--- NOTE | 2019-04-22 07:38 | NUR ---
PATIENT REQUESTING PAIN MEDICATION FOR LOWER BACK PAIN RATED 8/10 ON 0/10 SCALE. DILAUDID ADMINISTERED PRESCRIBED. WILL MONITOR FOR EFFECTIVENESS.
--- NOTE | 2019-04-22 07:50 | NUR ---
PATIENT TRANSPORTED TO SURGERY FOR [facility].
--- NOTE | 2019-04-22 09:00 | NUR ---
case management visits with patient, she is having a bronch today, patient states she will return home when medically stable and denies any home needs, case management will follow
--- NOTE | 2019-04-22 10:00 | NUR ---
PATIENT RETURNED FROM [facility].
--- NOTE | 2019-04-22 10:48 | NUR ---
PATIENT REQUESTING PAIN MEDICATION FOR LOWER BACK PAIN RATED 8/10 ON 0/10 SCALE. NORCO ADMINISTERED PRESCRIBED. WILL MONITOR FOR EFFECTIVENESS.
--- NOTE | 2019-04-22 11:48 | NUR ---
PATIENT STATES THAT NORCO WAS SOMEWHAT EFFECTIVE FOR LOWER BACK PAIN, RATES 6/10 ON 0/10 SCALE AT THIS TIME. WILL MONITOR.
--- NOTE | 2019-04-22 13:42 | NUR ---
PATIENT REQUESTING PAIN MEDICATION FOR LOWER BACK PAIN RATED 8/10 ON 0/10 SCALE. DILAUDID ADMINISTERED PRESCRIBED. WILL MONITOR FOR EFFECTIUVENESS.
--- NOTE | 2019-04-22 14:42 | NUR ---
PATIENT STATES THAT DILAUDID WAS SOMEWHAT EFFECTIVE FOR PAIN, RATED LOWER BACK PAIN 6/10 ON 0/10 SCALE AT THIS TIME.
--- NOTE | 2019-04-22 16:49 | NUR ---
PATIENT REQUESTING PAIN MEDICATION FOR LOWER BACK PAIN RATED 8/10 ON 0/10 SCALE. NORCO ADMINISTERED PRESCRIBED. WILL MONITOR FOR EFFECTIVENESS.
--- NOTE | 2019-04-22 17:49 | NUR ---
PATIENT STATES THAT NORCO WAS ALITTLE EFFECTIVE FOR LOWER BACK PAIN RATS 6/10 ON 0/10 SCALE AT THIS TIME. WILL MONITOR.
--- NOTE | 2019-04-22 19:10 | NUR ---
REPORT RECEIVED FROM MICHELLE LARA. PT SLEEPING AT THIS TIME. RESPIRATIONS EASY AND UNLABORED. CALL LIGHT IN REACH.
--- NOTE | 2019-04-22 20:42 | NUR ---
DILAUDID GIVEN PER ORDER FOR COMPLAINT OF 10/10 CHRONIC BACK PAIN. WILL MONITOR EFFECTIVENESS.
--- NOTE | 2019-04-22 21:34 | NUR ---
24 HR chart check completed.
--- NOTE | 2019-04-22 22:30 | NUR ---
DILAUDID APPEARS EFFECTIVE, PT SLEEPING.
[2019-04-23] VITALS: BP 176/93
--- NOTE | 2019-04-23 00:30 | NUR ---
NORCO GIVEN FOR COMPLAINTS OF CHRONIC PAIN. WILL MONITOR EFFECTIVENESS.
--- NOTE | 2019-04-23 02:00 | NUR ---
NORCO APPEARS EFFECTIVE, PT SLEEPING.
--- NOTE | 2019-04-23 05:40 | NUR ---
DILAUDID GIVEN PER ORDER FOR COMPLAINT OF CHRONIC 9/10 PAIN. WILL MONITOR EFFECTIVENESS.
--- NOTE | 2019-04-23 09:24 | NUR ---
NORCO ADMINISTERED FOR C/O 10 BACK PAIN. WILL CONTINUE TO MONITOR.
[2019-04-23] MEDS ORDERED: MEDROL DOSEPAK4 MG PO (10:08)
[2019-04-23] MEDS ORDERED: CYCLOBENZAPRINE10 MG PO (10:08)
[2019-04-23] MEDS ORDERED: DOXYCYCLINE MO100 M1 PO (10:08)
[2019-04-23 12:00] VITALS: BP 157/92
--- NOTE | 2019-04-23 12:33 | NUR ---
DILAUDID ADMINISTERED FOR 9/10 BACK PAIN. WILL CONTINUE TO MONITOR.
[2019-04-23 14:06] LABS: ACID FAST SPEC PROCESSING Concentration (.)
--- NOTE | 2019-04-23 15:43 | NUR ---
NORCO ADMINISTERED 10/10 BACK PAIN.
--- NOTE | 2019-04-23 15:59 | NUR ---
Discharge instructions reviewed with patient/family. Patient receptive and verbalizes understanding. Follow-up care arranged. Written instructions given to patient/family. Paper script from Dr Roca given to ptALESSANDRO NAVARRETE
--- NOTE | 2019-04-23 15:59 | NUR ---
MEDIPORT UNACCESSED AT THIS TIME. MONITOR UNATTACHED AND PLACED IN YELLOW BIN AT NURSES STATION.
== END 2019-04-23 18:15 | disposition home or self-care (01) | DRG 189 ==
LOC: ED 08:41 → EDHOLD 10:02 → 4E 10:02
PROVIDERS: Emergency Medicine; Internal Medicine Critical Care Medicine; ADMIT Internal Medicine
PROC: 0B968ZZ Drainage of Right Lower Lobe Bronchus, Via Natural or Artificial Opening Endoscopic (ICD-10-PCS; principal; 2019-04-22)
PROC: 0B948ZZ Drainage of Right Upper Lobe Bronchus, Via Natural or Artificial Opening Endoscopic (ICD-10-PCS; principal; 2019-04-22)
PROC: 0B9D8ZZ Drainage of Right Middle Lung Lobe, Via Natural or Artificial Opening Endoscopic (ICD-10-PCS; principal; 2019-04-22)
PROC: 0B998ZZ Drainage of Lingula Bronchus, Via Natural or Artificial Opening Endoscopic (ICD-10-PCS; principal; 2019-04-22)
PROC: 0B988ZZ Drainage of Left Upper Lobe Bronchus, Via Natural or Artificial Opening Endoscopic (ICD-10-PCS; principal; 2019-04-22)
PROC: 0B928ZZ Drainage of Carina, Via Natural or Artificial Opening Endoscopic (ICD-10-PCS; principal; 2019-04-22)
DX: J96.20 Acute and chronic respiratory failure, unspecified whether with hypoxia or hypercapnia (principal); J44.1 Chronic obstructive pulmonary disease with (acute) exacerbation; J44.0 Chronic obstructive pulmonary disease with (acute) lower respiratory infection; J45.901 Unspecified asthma with (acute) exacerbation; T17.890A Other foreign object in other parts of respiratory tract causing asphyxiation, initial encounter; E03.9 Hypothyroidism, unspecified; G25.81 Restless legs syndrome; J30.1 Allergic rhinitis due to pollen; M47.9 Spondylosis, unspecified; K27.9 Peptic ulcer, site unspecified, unspecified as acute or chronic, without hemorrhage or perforation; K21.0 Gastro-esophageal reflux disease with esophagitis; I10 Essential (primary) hypertension; F17.200 Nicotine dependence, unspecified, uncomplicated; R32 Unspecified urinary incontinence; D50.9 Iron deficiency anemia, unspecified; J20.9 Acute bronchitis, unspecified; G89.29 Other chronic pain; M79.18 Myalgia, other site; K57.90 Diverticulosis of intestine, part unspecified, without perforation or abscess without bleeding; X58.XXXA Exposure to other specified factors, initial encounter; Z88.6 Allergy status to analgesic agent; Z90.49 Acquired absence of other specified parts of digestive tract; Z99.81 Dependence on supplemental oxygen; Z90.710 Acquired absence of both cervix and uterus; Z93.3 Colostomy status; Z88.0 Allergy status to penicillin; Z88.8 Allergy status to other drugs, medicaments and biological substances; Y93.89 Activity, other specified; Y92.89 Other specified places as the place of occurrence of the external cause; Y99.8 Other external cause status

== ENCOUNTER → 2019-10-01 | Outpatient (CLI) | payer OTHER ==
[~2019-10-01] MED LIST changes: +AMLODIPINE BESY10 MG PO; +ATARAX,VISTARIL50 MG PO; +BUSPIRONE10 MG PO; +CYCLOBENZAPRINE10 MG PO; +DOXYCYCLINE MO100 M1 PO; +DOXYCYCLINE100 M3 PO; +OXYBUTYNIN5 MG PO; +ROPINIROLE HYDRO1 MG PO; +VENT7GM INH; +ZOLPIDEM10 MG PO
[2019-10-01 10:58] LABS: BASO % 0.4 % (0.0-1.0); EOS # 0.1 10*3/uL (0.0-0.4); EOS % 0.5 % (1.0-4.0); HEMATOCRIT 40.9 % (37.0-47.0); LYMPH # 3.9 10*3/uL (1.3-4.4); LYMPH % 35.2 % (27.0-41.0); MEAN CELL VOLUME 89.5 fl (81.0-99.0); MEAN CORPUSCULAR HGB 28.9 pg (27.0-31.0); MEAN CORPUSCULAR HGB CONC 32.3 g/dl (33.0-37.0); MEAN PLATELET VOLUME 10.4 fl (9.6-12.3); MONO # 1.1 10*3/uL (0.1-1.0); MONO % 10.2 % (3.0-9.0); NEUT # 5.9 10*3/uL (2.3-7.9); NEUT % 53.2 % (47.0-73.0); PLATELET COUNT AUTOMATED 181 10*3/uL (130-400); RED BLOOD COUNT 4.57 10*6/uL (4.10-5.10); RED CELL DISTRI WIDTH 15.2 % (0-14.5); WHITE BLOOD COUNT 11.1 10*3/uL (4.8-10.8)
[2019-10-01 11:29] LABS: ALBUMIN 3.1 gm/dl (3.1-4.5); CREATININE 1.13 mg/dL (0.55-1.02); FREE T4 1.6 ng/dl (0.76-1.46); POTASSIUM 2.8 mmol/L (3.5-5.1)
[2019-10-01 11:33] LABS: THYROID STIM HORMONE (HS) 16.1 uIU/ml (0.358-4.75)
[2019-10-01 11:35] LABS: VITAMIN D, 25-HYDROXY 17.6 ng/mL (30-100)
== END | disposition home or self-care (01) ==
LOC: LAB 10:07
PROVIDERS: Internal Medicine
DX: J44.1 Chronic obstructive pulmonary disease with (acute) exacerbation (principal); E03.9 Hypothyroidism, unspecified; E55.9 Vitamin D deficiency, unspecified; D21.0 Benign neoplasm of connective and other soft tissue of head, face and neck; D52.9 Folate deficiency anemia, unspecified; D51.9 Vitamin B12 deficiency anemia, unspecified; I10 Essential (primary) hypertension; R79.82 Elevated C-reactive protein (CRP); R70.0 Elevated erythrocyte sedimentation rate; R78.4 Finding of other drugs of addictive potential in blood; R53.81 Other malaise; R79.89 Other specified abnormal findings of blood chemistry

== ENCOUNTER 2019-10-05 14:20 | Inpatient (IN) | payer OTHER ==
[~2019-10-05] VITALS: Ht 154.9 cm; Wt 68.3 kg
[2019-10-05] VITALS: BP 106/54
[~2019-10-05 14:20] MED LIST changes: -AMLODIPINE BESY10 MG PO; -ATARAX,VISTARIL50 MG PO; -BUSPIRONE10 MG PO; -DOXYCYCLINE100 M3 PO; -ROPINIROLE HYDRO1 MG PO; -ZOLPIDEM10 MG PO
[2019-10-05 14:34] VITALS: BP 105/74
[2019-10-05 14:57] LABS: HEMATOCRIT 36.8 % (37.0-47.0); MEAN CELL VOLUME 89.1 fl (81.0-99.0); MEAN CORPUSCULAR HGB 28.6 pg (27.0-31.0); MEAN CORPUSCULAR HGB CONC 32.1 g/dl (33.0-37.0); MEAN PLATELET VOLUME 9.6 fl (9.6-12.3); PLATELET COUNT AUTOMATED 244 10*3/uL (130-400); RED BLOOD COUNT 4.13 10*6/uL (4.10-5.10); RED CELL DISTRI WIDTH 15.5 % (0-14.5); WHITE BLOOD COUNT 11.5 10*3/uL (4.8-10.8)
[2019-10-05 15:09] LABS: ACT PARTIAL THROMBO TIME 26.2 SECONDS (20.0-32.1); INTERNATIONAL NORM RATIO 0.9 (2.0-3.5)
--- NOTE | 2019-10-05 15:09 | NUR ---
Transfer of care from Halie flores.
--- NOTE | 2019-10-05 15:11 | NUR ---
In to see pt at this time.Pt has diminshed lung sounds in bases.Pt us normal sinus on the moniter and has some pain at this time.Pt rates it as a 6.
[2019-10-05 15:13] VITALS: BP 111/54
[2019-10-05 15:13] LABS: ALBUMIN 2.8 gm/dl (3.1-4.5); ALKALINE PHOSPHATASE 142 U/L (45-117); BUN 11 mg/dl (7-24); CHLORIDE 98 mmol/L (98-107); CREATININE 0.99 mg/dL (0.55-1.02); SGOT/AST 41 IU/L (3-35); SGPT/ALT 30 U/L (12-78); SODIUM 132 mmol/L (136-145)
[2019-10-05 15:15] LABS: TOTAL CELLS COUNTED 100 #CELLS
[2019-10-05 15:16] LABS: PLATELET SUFFICIENCY NORMAL (NORMAL); TROPONIN I < 0.015 ng/ml (<0.045)
--- NOTE | 2019-10-05 15:27 | NUR ---
Pt has left chest mediport intact and some trace edema noted in lower legs.
--- NOTE | 2019-10-05 15:37 | NUR ---
No wounds noted.One scbbed area noted underneath bandaid on left lower leg and another open scab noted.
--- NOTE | 2019-10-05 15:57 | NUR ---
Pt states pain is doing slightly better at this time.Pt is currently resting in bed.
[2019-10-05 16:12] VITALS: BP 103/57
--- NOTE | 2019-10-05 16:13 | NUR ---
SBAR FAXED TO FLOOR.
--- NOTE | 2019-10-05 16:15 | NUR ---
Attempted to call report at this time.
--- NOTE | 2019-10-05 16:25 | NUR ---
Pt states she usually wears 3 liters of oxygen all the time.Placed pt on 02 after morphine at this time.
--- NOTE | 2019-10-05 16:43 | NUR ---
A 73, admitted to , under the services of CARON Rankin MD with a diagnosis of CHEST PAIN. Chief complaint is CHEST DISCOMFORT AND DR CALLED WITH ABNORMAL LABS TODAY. Patient arrived via bed from ER. Monitor applied. Initial assessment completed. Vital signs taken and recorded. CARON RANKIN MD notified of admission to the unit. Orders received. See assessment for past medical history, medications and allergies. Patient and/or family oriented to unit. [facility] visitation policy reviewed. Clothing/patient valuable form completed. MCKAYLA CHAVEZ
[2019-10-05 16:45] VITALS: BP 105/74; BP 118/81
--- NOTE | 2019-10-05 16:45 | NUR ---
The assessment has been completed. JOHN GREGORY Time: 1644 A 73 year old FEMALE admitted to under services of CARON RANKIN MD. Pt. arrived via ambulatory from ER. Chief complaint: SENT BY DR DOYLE WHO WANTS PT ADMITTED FOR LOW ELECTROLYTES. PT C/O WEAKNESS,CHEST PAIN,VOMITING,SOB. JOHN GREGORY
[2019-10-05] MEDS ORDERED: ROPINIROLE HYDRO1 MG PO (16:46)
[2019-10-05] MEDS ORDERED: ATARAX,VISTARIL50 MG PO (16:48)
--- NOTE | 2019-10-05 16:48 | NUR ---
Pt states pain is doing better at this time.
[2019-10-05] MEDS ORDERED: ZOLPIDEM10 MG PO (16:50)
[2019-10-05] MEDS ORDERED: AMLODIPINE BESY10 MG PO (16:51)
[2019-10-05] MEDS ORDERED: BUSPIRONE10 MG PO (16:52)
--- NOTE | 2019-10-05 17:13 | NUR ---
MED REC UP TO DATE WITH WILMERTIESHA CUNNINGHAM
--- NOTE | 2019-10-05 17:38 | NUR ---
MESSAGE LEFT FOR DR MONROE ANSWERING SERVICE
--- NOTE | 2019-10-05 17:42 | NUR ---
PT REQUESTING HER "PAIN SHOT". WHEN ASKED WHAT IS HURTING SHE STATES HER CHEST IS A 10/10 STABBING PAIN. VSS. PT SITTING ON EDGE OF BED ON CELL PHONE. ASKED PT IF SHE REGUARLLY TAKES "PAIN SHOTS" AT HOME. SHE STATES NO BUT ITS THE STUFF THEY GAVE ME IN THE ER. EXPLAINED TO HER THAT THEY GAVE HER MORPHINE IN ER AND THAT I WOULD HAVE TO GET AN ORDER FOR IT.
--- NOTE | 2019-10-05 17:45 | NUR ---
ORDERS RECIEVED FROM DR BUSBY. VERIFIED AND REPEATED BACK. STATES PT HAS NORCO THAT SHE TAKES AT HOME FOR PAIN AND TO ADD NITRO PASTE.
--- NOTE | 2019-10-05 18:08 | NUR ---
PT C/O 4/10 SHARP CHEST PAIN THAT DOES NOT RADIATE. PT STATES THIS HAS BEEN ONGOING FOR A FEW DAYS. ALSO STATES "ALL OVER" JUST ACHES. MEDICATED PER ORDER . WILL MONITOR FOR RELIEF. RESPS EASY AND NON LABORED. NO S/S OF DISTRESS. SITTING UP IN BED ON CELL PHONE. PT REQUESTING TO KNOW WHEN SHE CAN HAVE THE NEXT PAIN PILL. EXPLAINED TO HER THAT IT IS Q6H. CALL LIGHT WITHIN REACH.
--- NOTE | 2019-10-05 18:30 | NUR ---
UPDATED ON POC. QUESTIONS ANSWERED.
--- NOTE | 2019-10-05 18:37 | NUR ---
NORCO EFECTIVE PER PT
--- NOTE | 2019-10-05 19:35 | NUR ---
Shift chart check completed.
[2019-10-05 20:00] VITALS: BP 98/48
--- NOTE | 2019-10-05 20:00 | NUR ---
BP REPORTED FROM PA 98/48. NITRO PASTE REMOVED AT THIS TIME, WILL RECHECK BP.
--- NOTE | 2019-10-05 20:51 | NUR ---
MANUAL BP 104/56, PATIENT STATES CHEST PAIN "NEVER FULLY GOES AWAY" CHEST IS TENDER TO TOUCH PATIENT WINCES WHEN SHOWING THIS NURSE WHERE HER PAIN IS OVER LEFT BREAST AREA, IS ALSO TENDER LT LOWER RIB AREA. PATIENT VERBALIZES NO NEEDS. IVF PER ORDERS. CALL LIGHT IS WITHIN REACH.
[2019-10-06] VITALS: BP 106/54
[2019-10-06 02:50] VITALS: BP 112/66
--- NOTE | 2019-10-06 02:54 | NUR ---
NORCO GIVEN PER REQUEST FOR C/O CHEST AND BACK PAIN. 11/04. WILL MONITOR.
--- NOTE | 2019-10-06 03:54 | NUR ---
PATIENT IS REQUESTING A "SHOT" TO TAKE FOR PAIN IN BETWEEN THE NORCO 10-325. NORCO IS MILDLY EFFECTIVE, STATES PAIN DOES NOT GO AWAY COMPLETELY.
[2019-10-06 05:28] VITALS: BP 114/70
--- NOTE | 2019-10-06 05:35 | NUR ---
NITROBID APPLIED PER ORDER, PATIENT HAS C/O CHEST PAIN AND BACK PAIN. BP STABLE. PATIENT REQUESTING MORPHINE.
[2019-10-06 06:09] LABS: BUN 12 mg/dl (7-24); CHLORIDE 104 mmol/L (98-107); CREATININE 0.82 mg/dL (0.55-1.02); SODIUM 137 mmol/L (136-145)
[2019-10-06 06:31] LABS: BASO # 0.1 10*3/uL (0.0-0.1); BASO % 0.9 % (0.0-1.0); EOS # 0.1 10*3/uL (0.0-0.4); EOS % 1.4 % (1.0-4.0); HEMATOCRIT 33.9 % (37.0-47.0); LYMPH # 2.1 10*3/uL (1.3-4.4); LYMPH % 31.5 % (27.0-41.0); MEAN CORPUSCULAR HGB 29.1 pg (27.0-31.0); MEAN PLATELET VOLUME 10.2 fl (9.6-12.3); MONO # 0.6 10*3/uL (0.1-1.0); MONO % 9.5 % (3.0-9.0); NEUT # 3.7 10*3/uL (2.3-7.9); NEUT % 56.4 % (47.0-73.0); PLATELET COUNT AUTOMATED 185 10*3/uL (130-400); RED BLOOD COUNT 3.61 10*6/uL (4.10-5.10); RED CELL DISTRI WIDTH 15.9 % (0-14.5); WHITE BLOOD COUNT 6.5 10*3/uL (4.8-10.8)
[2019-10-06 06:36] LABS: MEAN CELL VOLUME 93.9 fl (81.0-99.0)
--- NOTE | 2019-10-06 07:30 | NUR ---
PT RESTING IN BED. STATING SHE WANTS HER PAIN MEDS. RESPS EASY AND NON LABORED. NO S/S OF DISTRESS NOTED. VSS. WHITE BOARD UPDATED. POC DISCUSSED W PT. CALL LIGHT WITHIN REACH. 1-2+ BLE NOTED. IV FLUIDS INFUSING.
--- NOTE | 2019-10-06 07:34 | NUR ---
Shift chart check completed.
--- NOTE | 2019-10-06 07:51 | NUR ---
PER DR BUSBY PT NEEDS TO BE NPO FOR POSSIBLE STRESS TEST
--- NOTE | 2019-10-06 08:36 | NUR ---
PT C/O 02/04 ACHING CHRONIC BACK PAIN. MEDICATED PER ORDER. WILL MONITOR FOR RELIEF. VOICES NO OTHER CONCERNS AT THIS TIME. RESPS EASY AND NON LABORED. OXYGEN INTACT. PT CURRENTLY SITTING UP IN BED WATCHING TV. BED ALARM ON. CALL LIGHT WITHIN REACH.
--- NOTE | 2019-10-06 09:00 | NUR ---
Emergency Room Clinician in to talk to patient. Patient states lives at home alone with her friends/neighbors checking in on her. There are 0 steps in the home. Physician: Dr. Thai Roca [facility] Home health services: none Patient's level of ADLs: INDEPENDENT Patient has working utilities: yes DME: O2 @ 3L [place], portable O2 tanks, nebulizer, O2 supplier [facility] Follow-up physician's appointment after d/c: she prefers to make her own follow up appt after discharge Does patient want to access PORTAL?: no Discharge plan discussed with patient. She lives at home alone with her friends/neighbors checking in on her. She is independent in her ADLs and ambulation. Discussed home health care services and she is agreeable. When provided with a list of agencies she chose [facility]. When medically stable she will be discharged to home with [facility] services. She states her girlfriend will provide transportation on discharge. [place] PADILLA
--- NOTE | 2019-10-06 09:00 | NUR ---
DR FLORES NOTIFIED OF NEW CONSULT. NO NEW ORDERS AT THIS TIME.
--- NOTE | 2019-10-06 09:00 | NUR ---
MEDICATION PARTIALLY EFFECTIVE PER PT
--- NOTE | 2019-10-06 09:02 | NUR ---
PT C/O NAUSEA. DR BUSBY STATES SHE CAN HAVE ZOFRAN 8MG IV Q6H PRN.
--- NOTE | 2019-10-06 11:00 | NUR ---
PT MEDICATED W PRN ZOFRAN FOR C/O NAUSEA
--- NOTE | 2019-10-06 11:12 | NUR ---
CALL PLACED TO DR DONAHUE ANSWERING SERVICE REGARDING CONSULT. PT STATES SHE WANTS TO SEE HIM BECAUSE SHE HAS SEEN HIM IN THE PAST. HUNT CONSULT CANCELED.
--- NOTE | 2019-10-06 11:15 | NUR ---
SPOKE W DR DONAHUE WHO STATES HE WILL SEE THE PT TOMORROW. BUT IF DR BUSBY WANTS A STRESS TEST THAT SHE CAN HAVE ONE TODAY.
[2019-10-06 12:00] VITALS: BP 117/77
--- NOTE | 2019-10-06 14:17 | NUR ---
PER DR BOWEN PT IS TO HAVE STRESS TEST IN THE MORNING WITH DR BUSBY. ALSO STATES DR DEWITT WILL BE IN TO SEE HER TODAY.
--- NOTE | 2019-10-06 14:37 | NUR ---
PER CARDIAC REHAB PT WILL HAVE STRESS TEST FRIDAY MORNING
[2019-10-06 16:00] VITALS: BP 119/80
--- NOTE | 2019-10-06 16:37 | NUR ---
PT C/O 12/05 ACHING "ALL OVER" PAIN. MEDICATED PER ORDER. WILL MONITOR FOR RELIEF. RESPS EASY AND NON LABORED. BED ALARM ON. CALL LIGHT WITHIN REACH.
--- NOTE | 2019-10-06 17:02 | NUR ---
DILAUDID MOSTLY EFFECTIVE PER PT. PT NOW REQUESTING ZOFRAN FOR NAUSEA
[2019-10-06 20:00] VITALS: BP 117/76
--- NOTE | 2019-10-06 23:48 | NUR ---
24 HOUR CHART CHECK COMPLETE.
[2019-10-07] VITALS (10 sets, daily range): BP systolic 100–147; BP diastolic 60–87
--- NOTE | 2019-10-07 00:10 | NUR ---
DILAUDID ADMINISTERED FOR PT C/O BACK AND CHEST DISCOMFORT R/T COUGHING. RATED A 7/10. WILL CONTINUE TO MONITOR AND REASSESS.
--- NOTE | 2019-10-07 01:00 | NUR ---
PT ASLEEP. NO SIGNS OF DISCOMFORT OR DISTRESS NOTED. WILL CONTINUE TO MONITOR.
--- NOTE | 2019-10-07 07:40 | NUR ---
LEAVING FOR SURGERY.
--- NOTE | 2019-10-07 09:57 | NUR ---
MEDICATED WITH IV DILAUDID ORDERED PER PT REQUEST FOR C/O BACK PAIN RATED 5/10.
--- NOTE | 2019-10-07 11:00 | NUR ---
MEDICATION EFFECTIVE FOR PAIN. RN CALLED DR BUSBY PER PT'S REQUEST TO ASK FOR ADDITIONAL PAIN MEDICATION, SHE REFUSED.
--- NOTE | 2019-10-07 11:18 | NUR ---
Apple Press Operator in to see patient. No new needs or request at this time. When medically stable she will be discharged to home with [facility] services.
--- NOTE | 2019-10-07 15:01 | NUR ---
MEDICATED PO VISTARL ORDERED PER PT REQUEST FOR C/O ANXIETY.
--- NOTE | 2019-10-07 16:00 | NUR ---
MEDICATION EFFECTIVE FOR ANXIETY.
--- NOTE | 2019-10-07 17:52 | NUR ---
MEDICATED WITH IV DILAUDID ORDERED PER PT REQUEST FOR C/O GENERALIZED PAIN RATED 5/10.
--- NOTE | 2019-10-07 18:42 | NUR ---
MEDICATION EFFECTIVE FOR PAIN.
--- NOTE | 2019-10-07 18:59 | NUR ---
Patient resting quietly with no c/o discomfort. Respirations easy and regular. Vital signs stable. No overt distress. ISIDRO ZARATE
--- NOTE | 2019-10-07 19:23 | NUR ---
24 HR chart check completed.
[2019-10-08] VITALS: BP 128/85
--- NOTE | 2019-10-08 02:53 | NUR ---
IV DILAUDID GIVEN PER PRN ORDER FOR C/O PAIN IN MID BACK RATED 8/10. WILL MONITOR. CALL LIGHT IN REACH.
--- NOTE | 2019-10-08 03:30 | NUR ---
PATIENT SLEEPING, DILAUDID EFFECTIVE. RESPIRATIONS EASY, NON LABORED. BED IN LOWEST POSITION,CALL LIGHT WITHIN REACH. WILL CONTINUE TO MONITOR.
[2019-10-08 08:00] VITALS: BP 116/70
--- NOTE | 2019-10-08 09:01 | NUR ---
PATIENT OFF THE FLOOR AT THIS TIME FOR STRESS TEST.
--- NOTE | 2019-10-08 09:45 | NUR ---
INFORMED CONSENT OBTAINED FOR LEXISCAN NUCLEAR STRESS TEST WITH DR. FIGUEROA. RESTING EKG NSR WITH A RESTING HR OF 86 WITH BP OF 134/80. LUNGS: EXPIRATORY WHEEZE WITH SPO2 OF 98% ON ROOM AIR. PT COMPLETED A 1:00 LEXISCAN PROTOCOL RECEIVING LEXISCAN 0.4 MG IV OVER 10 SECONDS. HAD NO CHEST PAIN OR ANY EKG CHANGES. HAD C/O "COOL" FEELING THAT SUBSIDED IN RECOVERY. HAD A PEAK HR OF 115 WITH BP OF 122/72. LAST RECOVERY HR OF 105 WITH BP OF 118/70. AWAITING SCANNING IN STABLE CONDITION.
--- NOTE | 2019-10-08 11:10 | NUR ---
PT. UNAVAILABLE OFF FLOOR FOR STRESS TEST.
--- NOTE | 2019-10-08 11:10 | NUR ---
PATIENT BACK TO THE FLOOR AT THIS TIME.
--- NOTE | 2019-10-08 11:21 | NUR ---
MEDICATED WITH PRN DILAUDID PER PT REQUEST FOR BACK PAIN RATED 10/10. WILL ASSESS EFFECTIVENESS.
--- NOTE | 2019-10-08 11:55 | NUR ---
PATIENT REQUESTING PRN VISTARIL FOR ITCHING. WILL ASSESS EFFECTIVENESS.
[2019-10-08 12:00] VITALS: BP 142/97
--- NOTE | 2019-10-08 12:21 | NUR ---
PATIENT STATES DILAUDID WAS EFFECTIVE.
--- NOTE | 2019-10-08 12:21 | NUR ---
Tube Bending Machine Operator in to see patient. No new needs or request at this time. When medically stable she will be discharged to home with [facility] services.
--- NOTE | 2019-10-08 12:55 | NUR ---
PER PATIENT VISTARIL EFFECTIVE.
--- NOTE | 2019-10-08 12:58 | NUR ---
Faxed home health order to [facility]
--- NOTE | 2019-10-08 13:40 | NUR ---
NOTIFIED OF STRESS TEST RESULTS. PER PATIENT OK FOR DISCHARGE. PER PATIENT SHE WILL NOT BE ABLE TO LEAVE UNTIL TOMORROW.
--- NOTE | 2019-10-08 15:29 | NUR ---
PATIENT RESTING IN BED WITH NO COMPLAINTS. CALL LIGHT IN REACH.
--- NOTE | 2019-10-08 15:52 | NUR ---
24 HR chart check completed.
--- NOTE | 2019-10-08 15:54 | NUR ---
PT. REFUSED AEROSOL TREATMENT
[2019-10-08 16:00] VITALS: BP 138/96
--- NOTE | 2019-10-08 19:22 | NUR ---
PATIENT CO BACK PAIN RATED A 10/10 MEDICATED WITH PRN DILAUDID. ONCOMING NURSE TO ASSESS EFFECTIVENESS.
[2019-10-08 20:00] VITALS: BP 121/75
--- NOTE | 2019-10-08 21:38 | NUR ---
PATIENT REQUESTING VISTARIL AND ZOFRAN. MEDICATED WITH BOTH AT THIS TIME. WILL CHECK EFFECTIVENESS. PATIENT STATES THE DILAUDID GIVEN EARLIER WAS EFFECTIVE.
[2019-10-09] VITALS: BP 117/78
--- NOTE | 2019-10-09 03:25 | NUR ---
PATIENT MEDICATED WITH DILAUDID PER REQUEST. C/O BACK PAIN RATES 12/05. WILL CHECK EFFECTIVENESS.
--- NOTE | 2019-10-09 03:46 | NUR ---
PATIENT NOW REQUESTING ZOFRAN. MEDICATED AT THIS TIME. WILL CHECK EFFECTIVENESS.
[2019-10-09] MEDS ORDERED: PREDNISONE5 MG PO (05:13)
[2019-10-09] MEDS ORDERED: DOXYCYCLINE100 M3 PO (05:13)
[2019-10-09 07:28] LABS: BASO % 0.1 % (0.0-1.0); HEMATOCRIT 35.3 % (37.0-47.0); LYMPH # 2.2 10*3/uL (1.3-4.4); LYMPH % 30.1 % (27.0-41.0); MEAN CELL VOLUME 91.5 fl (81.0-99.0); MEAN CORPUSCULAR HGB 28.8 pg (27.0-31.0); MEAN CORPUSCULAR HGB CONC 31.4 g/dl (33.0-37.0); MEAN PLATELET VOLUME 10.2 fl (9.6-12.3); MONO # 0.6 10*3/uL (0.1-1.0); MONO % 7.7 % (3.0-9.0); NEUT # 4.5 10*3/uL (2.3-7.9); NEUT % 61.6 % (47.0-73.0); PLATELET COUNT AUTOMATED 197 10*3/uL (130-400); RED BLOOD COUNT 3.86 10*6/uL (4.10-5.10); RED CELL DISTRI WIDTH 15.9 % (0-14.5); WHITE BLOOD COUNT 7.4 10*3/uL (4.8-10.8)
[2019-10-09 08:00] VITALS: BP 139/98
--- NOTE | 2019-10-09 09:00 | NUR ---
PATIENT DISCHARGED TO HOME. ALL PERSONAL BELONGINGS SENT WITH PATIENT. MEDIPORT ACCESS REMOVED. BRASS MOLDER REMOVED. PATIENT INSTRUCTED TO FOLLOW UP WITH . INFORMED THAT ANTIBIOTIC WILL BE CALLED TO MICA STEELE AND THAT RN WILL CALL HER WITH INSTRUCTIONS.
[2019-10-09 12:07] LABS: ACID FAST SPEC PROCESSING Concentration (.)
== END 2019-10-09 09:59 | disposition home health service (06) | DRG 202 ==
LOC: ED 14:20 → 4E 15:51 → EDHOLD 15:51 → 4E 16:32
PROVIDERS: Internal Medicine Critical Care Medicine; Nurse Practitioner Family; ADMIT Internal Medicine
PROC: 0BC28ZZ Extirpation of Matter from Carina, Via Natural or Artificial Opening Endoscopic (ICD-10-PCS; principal; 2019-10-07)
PROC: 0BC58ZZ Extirpation of Matter from Right Middle Lobe Bronchus, Via Natural or Artificial Opening Endoscopic (ICD-10-PCS; principal; 2019-10-07)
PROC: 0BC88ZZ Extirpation of Matter from Left Upper Lobe Bronchus, Via Natural or Artificial Opening Endoscopic (ICD-10-PCS; principal; 2019-10-07)
PROC: 0BC98ZZ Extirpation of Matter from Lingula Bronchus, Via Natural or Artificial Opening Endoscopic (ICD-10-PCS; principal; 2019-10-07)
PROC: 0BC78ZZ Extirpation of Matter from Left Main Bronchus, Via Natural or Artificial Opening Endoscopic (ICD-10-PCS; principal; 2019-10-07)
PROC: 0BC68ZZ Extirpation of Matter from Right Lower Lobe Bronchus, Via Natural or Artificial Opening Endoscopic (ICD-10-PCS; principal; 2019-10-07)
PROC: 0BC48ZZ Extirpation of Matter from Right Upper Lobe Bronchus, Via Natural or Artificial Opening Endoscopic (ICD-10-PCS; principal; 2019-10-07)
PROC: 0BCB8ZZ Extirpation of Matter from Left Lower Lobe Bronchus, Via Natural or Artificial Opening Endoscopic (ICD-10-PCS; principal; 2019-10-07)
PROC: 0BC38ZZ Extirpation of Matter from Right Main Bronchus, Via Natural or Artificial Opening Endoscopic (ICD-10-PCS; principal; 2019-10-07)
PROC: 3E073KZ Introduction of Other Diagnostic Substance into Coronary Artery, Percutaneous Approach (ICD-10-PCS; 2019-10-08)
PROC: 4A02XM4 Measurement of Cardiac Total Activity, External Approach (ICD-10-PCS; 2019-10-08)
DX: J20.9 Acute bronchitis, unspecified (principal); E87.1 Hypo-osmolality and hyponatremia; J44.0 Chronic obstructive pulmonary disease with (acute) lower respiratory infection; J44.1 Chronic obstructive pulmonary disease with (acute) exacerbation; N17.9 Acute kidney failure, unspecified; J96.10 Chronic respiratory failure, unspecified whether with hypoxia or hypercapnia; R07.89 Other chest pain; E87.6 Hypokalemia; G89.4 Chronic pain syndrome; F17.210 Nicotine dependence, cigarettes, uncomplicated; F51.01 Primary insomnia; E87.8 Other disorders of electrolyte and fluid balance, not elsewhere classified; I10 Essential (primary) hypertension; M54.5 Low back pain; F41.1 Generalized anxiety disorder; K57.90 Diverticulosis of intestine, part unspecified, without perforation or abscess without bleeding; K21.9 Gastro-esophageal reflux disease without esophagitis; Z96.612 Presence of left artificial shoulder joint; Z96.611 Presence of right artificial shoulder joint; R00.2 Palpitations; R11.2 Nausea with vomiting, unspecified; Z88.0 Allergy status to penicillin; Z88.6 Allergy status to analgesic agent; Z82.49 Family history of ischemic heart disease and other diseases of the circulatory system; Z90.49 Acquired absence of other specified parts of digestive tract; Z90.710 Acquired absence of both cervix and uterus

== ENCOUNTER 2019-10-23 06:35 | Inpatient (IN) | payer OTHER ==
[~2019-10-23] VITALS: Ht 154.9 cm; Wt 65.9 kg
[~2019-10-23 06:35] MED LIST changes: +AMLODIPINE BESY10 MG PO; +ATARAX,VISTARIL50 MG PO; +BUSPIRONE10 MG PO; +DOXYCYCLINE100 M3 PO; +ROPINIROLE HYDRO1 MG PO; +ZOLPIDEM10 MG PO
[2019-10-23 07:01] LABS: BASO % 0.2 % (0.0-1.0); EOS # 0.1 10*3/uL (0.0-0.4); EOS % 0.5 % (1.0-4.0); HEMATOCRIT 34.6 % (37.0-47.0); LYMPH # 3.2 10*3/uL (1.3-4.4); LYMPH % 20.7 % (27.0-41.0); MEAN CELL VOLUME 88.5 fl (81.0-99.0); MEAN CORPUSCULAR HGB 28.4 pg (27.0-31.0); MEAN CORPUSCULAR HGB CONC 32.1 g/dl (33.0-37.0); MEAN PLATELET VOLUME 9.8 fl (9.6-12.3); MONO # 0.7 10*3/uL (0.1-1.0); MONO % 4.4 % (3.0-9.0); NEUT # 11.5 10*3/uL (2.3-7.9); NEUT % 73.8 % (47.0-73.0); PLATELET COUNT AUTOMATED 216 10*3/uL (130-400); RED BLOOD COUNT 3.91 10*6/uL (4.10-5.10); RED CELL DISTRI WIDTH 15.9 % (0-14.5); WHITE BLOOD COUNT 15.5 10*3/uL (4.8-10.8)
[2019-10-23 07:26] LABS: ALBUMIN 2.6 gm/dl (3.1-4.5); ALKALINE PHOSPHATASE 173 U/L (45-117); BUN 7 mg/dl (7-24); CHLORIDE 103 mmol/L (98-107); CREATININE 0.65 mg/dL (0.55-1.02); POTASSIUM 3.4 mmol/L (3.5-5.1); SGOT/AST 25 IU/L (3-35); SGPT/ALT 24 U/L (12-78); SODIUM 136 mmol/L (136-145); TOTAL PROTEIN 6.9 gm/dL (6.4-8.2)
[2019-10-23 07:42] LABS: TROPONIN I < 0.015 ng/ml (<0.045)
[2019-10-23 08:10] VITALS: BP 100/60
[2019-10-23 08:12] LABS: BILIRUBIN NEGATIVE (NEGATIVE); BLOOD TRACE-INTACT (NEGATIVE); CLARITY CLOUDY (CLEAR); COLOR YELLOW (YELLOW); GLUCOSE NEGATIVE (NEGATIVE); KETONE NEGATIVE (NEGATIVE); LEUKO ESTERASE 3+ (NEGATIVE); NITRITE NEGATIVE (NEGATIVE); UROBILINOGEN 0.2 E.U./dl (0.2-1.0)
[2019-10-23 08:13] LABS: BACTERIA 3+; EPITHELIAL CELLS 31-40; WBC 51-100 wbc/hpf (0-5)
[2019-10-23 09:21] VITALS: BP 116/71
[2019-10-23 12:00] VITALS: BP 107/57
[2019-10-23 16:00] VITALS: BP 120/72
[2019-10-23 20:00] VITALS: BP 117/74
[2019-10-24] VITALS: BP 115/77
[2019-10-24 08:00] VITALS: BP 120/78
[2019-10-24 12:00] VITALS: BP 108/71
[2019-10-24 16:00] VITALS: BP 125/94
[2019-10-24 20:00] VITALS: BP 125/65
[2019-10-25] VITALS: BP 107/56
[2019-10-25 08:00] VITALS: BP 128/68
[2019-10-25 12:00] VITALS: BP 129/74
[2019-10-25 16:00] VITALS: BP 147/90
[2019-10-25 20:00] VITALS: BP 132/86
[2019-10-26] VITALS: BP 131/84
[2019-10-26 08:00] VITALS: BP 140/88
[2019-10-26 12:00] VITALS: BP 155/76
[2019-10-26 16:00] VITALS: BP 155/88
[2019-10-26 20:00] VITALS: BP 138/89
[2019-10-27] VITALS: BP 148/84
[2019-10-27 08:00] VITALS: BP 155/104
[2019-10-27 12:00] VITALS: BP 139/101
[2019-10-27 16:00] VITALS: BP 135/100
[2019-10-27 20:00] VITALS: BP 139/87
[2019-10-28] VITALS: BP 152/88
[2019-10-28 08:00] VITALS: BP 140/84
[2019-10-28 12:00] VITALS: BP 133/79
[2019-10-28 16:00] VITALS: BP 130/74
[2019-10-28 20:00] VITALS: BP 125/95
[2019-10-29] VITALS: BP 134/73
[2019-10-29] MEDS ORDERED: DOXYCYCLINE100 M3 PO (06:23)
[2019-10-29] MEDS ORDERED: PREDNISONE5 MG PO (06:24)
[2019-10-29 06:38] LABS: HEMATOCRIT 37.6 % (37.0-47.0); MEAN CELL VOLUME 88.7 fl (81.0-99.0); MEAN CORPUSCULAR HGB 28.1 pg (27.0-31.0); MEAN CORPUSCULAR HGB CONC 31.6 g/dl (33.0-37.0); MEAN PLATELET VOLUME 10.5 fl (9.6-12.3); PLATELET COUNT AUTOMATED 244 10*3/uL (130-400); RED BLOOD COUNT 4.24 10*6/uL (4.10-5.10); RED CELL DISTRI WIDTH 15.7 % (0-14.5); WHITE BLOOD COUNT 9.4 10*3/uL (4.8-10.8)
[2019-10-29 06:42] LABS: CREATININE 1.3 mg/dL (0.55-1.02); POTASSIUM 4.2 mmol/L (3.5-5.1)
[2019-10-29 07:32] LABS: TOTAL CELLS COUNTED 100 #CELLS
[2019-10-29 07:33] LABS: PLATELET SUFFICIENCY NORMAL (NORMAL)
[2019-10-29 08:00] VITALS: BP 132/70
== END 2019-10-29 09:15 | disposition home or self-care (01) | DRG 189 ==
LOC: ED 06:35 → EDHOLD 08:10 → 4E 08:10
PROVIDERS: Emergency Medicine Emergency Medical Services; ADMIT Internal Medicine
PROC: 5A09357 Assistance with Respiratory Ventilation, Less than 24 Consecutive Hours, Continuous Positive Airway Pressure (ICD-10-PCS; principal; 2019-10-25)
DX: J96.21 Acute and chronic respiratory failure with hypoxia (principal); J44.1 Chronic obstructive pulmonary disease with (acute) exacerbation; N39.0 Urinary tract infection, site not specified; Z16.23 Resistance to quinolones and fluoroquinolones; M47.816 Spondylosis without myelopathy or radiculopathy, lumbar region; B96.20 Unspecified Escherichia coli [E. coli] as the cause of diseases classified elsewhere; B96.89 Other specified bacterial agents as the cause of diseases classified elsewhere; R31.29 Other microscopic hematuria; G25.81 Restless legs syndrome; F41.1 Generalized anxiety disorder; G89.29 Other chronic pain; M54.5 Low back pain; I10 Essential (primary) hypertension; E03.9 Hypothyroidism, unspecified; K21.0 Gastro-esophageal reflux disease with esophagitis; F51.01 Primary insomnia; M94.0 Chondrocostal junction syndrome [Tietze]; K31.84 Gastroparesis; F17.210 Nicotine dependence, cigarettes, uncomplicated; Z93.3 Colostomy status; Z88.0 Allergy status to penicillin; Z88.6 Allergy status to analgesic agent

== ENCOUNTER → 2020-02-21 | Outpatient (CLI) | payer OTHER | END | disposition home or self-care (01) | LOC: MRI 02-17 11:00 | PROVIDERS: ATTEND Student in an Organized Health Care Education/Training Program | DX: M47.26 Other spondylosis with radiculopathy, lumbar region (principal); M48.061 Spinal stenosis, lumbar region without neurogenic claudication; M96.1 Postlaminectomy syndrome, not elsewhere classified ==

== ENCOUNTER 2020-06-08 12:06 | Inpatient (IN) | payer OTHER ==
[~2020-06-08] VITALS: Ht 157.4 cm; Wt 61.8 kg
[2020-06-08] VITALS (12 sets, daily range): BP systolic 100–167; BP diastolic 70–101
[2020-06-08 13:50] LABS: BASO # 0.1 10*3/uL (0.0-0.1); BASO % 0.8 % (0.0-1.0); EOS % 0.3 % (1.0-4.0); HEMATOCRIT 36.8 % (37.0-47.0); LYMPH # 2.4 10*3/uL (1.3-4.4); LYMPH % 29.8 % (27.0-41.0); MEAN CELL VOLUME 95.1 fl (81.0-99.0); MEAN CORPUSCULAR HGB 32.3 pg (27.0-31.0); MEAN PLATELET VOLUME 9.8 fl (9.6-12.3); MONO # 0.9 10*3/uL (0.1-1.0); MONO % 10.9 % (3.0-9.0); NEUT # 4.6 10*3/uL (2.3-7.9); NEUT % 57.6 % (47.0-73.0); PLATELET COUNT AUTOMATED 152 10*3/uL (130-400); RED BLOOD COUNT 3.87 10*6/uL (4.10-5.10); RED CELL DISTRI WIDTH 14.3 % (0-14.5); WHITE BLOOD COUNT 7.9 10*3/uL (4.8-10.8)
[2020-06-08 14:00] LABS: ACT PARTIAL THROMBO TIME 31.8 SECONDS (20.0-32.1); INTERNATIONAL NORM RATIO 1.1 (2.0-3.5)
[2020-06-08 14:06] LABS: ALBUMIN 2.6 gm/dl (3.1-4.5); ALKALINE PHOSPHATASE 263 U/L (45-117); BUN 12 mg/dl (7-24); CHLORIDE 93 mmol/L (98-107); CPK 26 U/L (26-192); CREATININE 0.88 mg/dL (0.55-1.02); LIPASE 70 U/L (73-393); POTASSIUM 3.4 mmol/L (3.5-5.1); SGOT/AST 77 IU/L (3-35); SGPT/ALT 35 U/L (12-78); SODIUM 129 mmol/L (136-145); TOTAL PROTEIN 7.2 gm/dL (6.4-8.2)
[2020-06-08 14:12] LABS: TROPONIN I < 0.015 ng/ml (<0.045)
[2020-06-08] MEDS ORDERED: NORCO 10/325 PO (15:01)
[2020-06-08] MEDS ORDERED: REGLAN5 MG PO (15:05)
[2020-06-08] MEDS ORDERED: REMERON30 M1 PO (15:06)
[2020-06-08] MEDS ORDERED: CYCLOBENZAPRINE10 MG PO (15:08)
[2020-06-08] MEDS ORDERED: FLUTICASONE-SA1 EAC5 INH (15:10)
[2020-06-08] MEDS ORDERED: VENTOLIN 02.5 MG/3 M INH (15:12)
[2020-06-08 16:16] LABS: BILIRUBIN Negative (Negative); BLOOD Negative (Negative); CLARITY Clear (Clear); COLOR Yellow (Yellow); GLUCOSE Negative (Negative); KETONE Negative (Negative); LEUKO ESTERASE 2+ (Negative); NITRITE Negative (Negative)
[2020-06-08 16:50] LABS: BACTERIA 2+; EPITHELIAL CELLS 16-20; WBC 41-50 wbc/hpf (0-5)
[2020-06-09] VITALS: BP 130/68
[2020-06-09 07:32] LABS: BUN 12 mg/dl (7-24); CHLORIDE 98 mmol/L (98-107); CREATININE 0.64 mg/dL (0.55-1.02); POTASSIUM 3.7 mmol/L (3.5-5.1); SODIUM 130 mmol/L (136-145)
[2020-06-09 08:00] VITALS: BP 116/72
[2020-06-09 12:00] VITALS: BP 120/68
[2020-06-09 16:00] VITALS: BP 115/68
[2020-06-09 20:00] VITALS: BP 118/84
[2020-06-10] VITALS: BP 128/77
[2020-06-10 08:00] VITALS: BP 149/91
[2020-06-10 08:33] LABS: BASO % 0.3 % (0.0-1.0); HEMATOCRIT 30.8 % (37.0-47.0); LYMPH # 1.2 10*3/uL (1.3-4.4); LYMPH % 31.2 % (27.0-41.0); MEAN CELL VOLUME 98.1 fl (81.0-99.0); MEAN CORPUSCULAR HGB 32.8 pg (27.0-31.0); MEAN CORPUSCULAR HGB CONC 33.4 g/dl (33.0-37.0); MONO # 0.2 10*3/uL (0.1-1.0); NEUT # 2.5 10*3/uL (2.3-7.9); NEUT % 61.7 % (47.0-73.0); PLATELET COUNT AUTOMATED 122 10*3/uL (130-400); RED BLOOD COUNT 3.14 10*6/uL (4.10-5.10); RED CELL DISTRI WIDTH 13.7 % (0-14.5)
[2020-06-10 08:43] LABS: BUN 13 mg/dl (7-24); CHLORIDE 100 mmol/L (98-107); CREATININE 0.56 mg/dL (0.55-1.02); POTASSIUM 3.6 mmol/L (3.5-5.1); SODIUM 133 mmol/L (136-145)
[2020-06-10 12:00] VITALS: BP 139/97
[2020-06-10 16:00] VITALS: BP 125/82
[2020-06-10 20:00] VITALS: BP 147/95
[2020-06-11] VITALS (8 sets, daily range): BP systolic 104–153; BP diastolic 64–94
[2020-06-12] VITALS: BP 141/83
[2020-06-12 06:41] LABS: BASO % 0.2 % (0.0-1.0); HEMATOCRIT 31.3 % (37.0-47.0); LYMPH # 1.1 10*3/uL (1.3-4.4); LYMPH % 22.8 % (27.0-41.0); MEAN CORPUSCULAR HGB 32.3 pg (27.0-31.0); MEAN CORPUSCULAR HGB CONC 32.3 g/dl (33.0-37.0); MEAN PLATELET VOLUME 9.5 fl (9.6-12.3); MONO # 0.3 10*3/uL (0.1-1.0); MONO % 6.3 % (3.0-9.0); NEUT # 3.4 10*3/uL (2.3-7.9); NEUT % 68.7 % (47.0-73.0); PLATELET COUNT AUTOMATED 110 10*3/uL (130-400); RED BLOOD COUNT 3.13 10*6/uL (4.10-5.10); RED CELL DISTRI WIDTH 13.7 % (0-14.5)
[2020-06-12 07:12] LABS: ALBUMIN 2.6 gm/dl (3.1-4.5); ALKALINE PHOSPHATASE 171 U/L (45-117); BUN 13 mg/dl (7-24); CHLORIDE 98 mmol/L (98-107); CREATININE 0.48 mg/dL (0.55-1.02); POTASSIUM 3.1 mmol/L (3.5-5.1); SGOT/AST 109 IU/L (3-35); SGPT/ALT 56 U/L (12-78); SODIUM 137 mmol/L (136-145); TOTAL PROTEIN 6.4 gm/dL (6.4-8.2)
[2020-06-12 08:00] VITALS: BP 156/92
[2020-06-12 12:00] VITALS: BP 133/79
[2020-06-12 12:06] LABS: ACID FAST SPEC PROCESSING Concentration (.)
[2020-06-12] MEDS ORDERED: DOXYCYCLINE100 M3 PO (14:41)
[2020-07-24 11:06] LABS: ACID FAST CULTURE Negative (.)
== END 2020-06-12 15:38 | disposition home health service (06) | DRG 377 ==
LOC: ED 12:06 → 5E 14:34 → EDHOLD 14:34 → 5E 15:05
PROVIDERS: Emergency Medicine; Internal Medicine Critical Care Medicine; Internal Medicine Gastroenterology; ADMIT Internal Medicine; ATTEND Internal Medicine
PROC: 0BC98ZZ Extirpation of Matter from Lingula Bronchus, Via Natural or Artificial Opening Endoscopic (ICD-10-PCS; principal; 2020-06-11)
PROC: 0BC48ZZ Extirpation of Matter from Right Upper Lobe Bronchus, Via Natural or Artificial Opening Endoscopic (ICD-10-PCS; 2020-06-11)
PROC: 0BC88ZZ Extirpation of Matter from Left Upper Lobe Bronchus, Via Natural or Artificial Opening Endoscopic (ICD-10-PCS; 2020-06-11)
PROC: 0BC58ZZ Extirpation of Matter from Right Middle Lobe Bronchus, Via Natural or Artificial Opening Endoscopic (ICD-10-PCS; 2020-06-11)
PROC: 0BC38ZZ Extirpation of Matter from Right Main Bronchus, Via Natural or Artificial Opening Endoscopic (ICD-10-PCS; 2020-06-11)
PROC: 0BC78ZZ Extirpation of Matter from Left Main Bronchus, Via Natural or Artificial Opening Endoscopic (ICD-10-PCS; 2020-06-11)
PROC: 0BC68ZZ Extirpation of Matter from Right Lower Lobe Bronchus, Via Natural or Artificial Opening Endoscopic (ICD-10-PCS; 2020-06-11)
PROC: 0BCB8ZZ Extirpation of Matter from Left Lower Lobe Bronchus, Via Natural or Artificial Opening Endoscopic (ICD-10-PCS; 2020-06-11)
PROC: 0BC18ZZ Extirpation of Matter from Trachea, Via Natural or Artificial Opening Endoscopic (ICD-10-PCS; 2020-06-11)
PROC: 0DB68ZX Excision of Stomach, Via Natural or Artificial Opening Endoscopic, Diagnostic (ICD-10-PCS; 2020-06-11)
DX: K29.71 Gastritis, unspecified, with bleeding (principal); J96.20 Acute and chronic respiratory failure, unspecified whether with hypoxia or hypercapnia; J44.1 Chronic obstructive pulmonary disease with (acute) exacerbation; K22.10 Ulcer of esophagus without bleeding; E87.1 Hypo-osmolality and hyponatremia; D61.818 Other pancytopenia; T17.590A Other foreign object in bronchus causing asphyxiation, initial encounter; F33.1 Major depressive disorder, recurrent, moderate; J44.0 Chronic obstructive pulmonary disease with (acute) lower respiratory infection; K31.84 Gastroparesis; E11.43 Type 2 diabetes mellitus with diabetic autonomic (poly)neuropathy; K21.9 Gastro-esophageal reflux disease without esophagitis; I10 Essential (primary) hypertension; K29.80 Duodenitis without bleeding; K44.9 Diaphragmatic hernia without obstruction or gangrene; F17.200 Nicotine dependence, unspecified, uncomplicated; M47.9 Spondylosis, unspecified; M19.90 Unspecified osteoarthritis, unspecified site; E03.9 Hypothyroidism, unspecified; G25.81 Restless legs syndrome; K21.00 Gastro-esophageal reflux disease with esophagitis, without bleeding; R26.2 Difficulty in walking, not elsewhere classified; F51.01 Primary insomnia; K52.9 Noninfective gastroenteritis and colitis, unspecified; E83.39 Other disorders of phosphorus metabolism; F41.9 Anxiety disorder, unspecified; K57.30 Diverticulosis of large intestine without perforation or abscess without bleeding; X58.XXXA Exposure to other specified factors, initial encounter; J20.9 Acute bronchitis, unspecified; B95.62 Methicillin resistant Staphylococcus aureus infection as the cause of diseases classified elsewhere; R91.1 Solitary pulmonary nodule; R33.8 Other retention of urine; Z71.6 Tobacco abuse counseling; Y93.89 Activity, other specified; Z88.0 Allergy status to penicillin; Z88.6 Allergy status to analgesic agent; Z88.8 Allergy status to other drugs, medicaments and biological substances; Z82.49 Family history of ischemic heart disease and other diseases of the circulatory system; Z79.899 Other long term (current) drug therapy; Z90.49 Acquired absence of other specified parts of digestive tract; Y92.89 Other specified places as the place of occurrence of the external cause; Y99.8 Other external cause status